=== PATIENT | male | born 1975 | race Caucasian/White ===

== ENCOUNTER 2019-08-27 12:52 | Outpatient (CLI) | payer OTHER, SELFPAY ==
--- NOTE | ~2019-08-27 | XR_ITS ---
EXAMINATION: XR tibia fibula RT 2V DATE: 08/27/2019 13:32 INDICATION: Several days of right-sided fibula pain TECHNIQUE: Anteroposterior and lateral views of the right tibia and fibula were obtained. COMPARISON: None. FINDINGS: Bone alignment is normal. Focal cortical thickening suggesting nonaggressive periosteal reaction surr ounding a small lucency along the lateral cortex of the fibular diaphysis located 18 cm proximal to t he caudal tip of the lateral malleolus. No evident endosteal scalloping. Tricompartmental osteoarthritis at the right knee with prominent marginal osteophytes in all 3 compar tments. There is only mild joint space narrowing the medial and patellofemoral compartments however s everity of joint space narrowing can be underestimated on nonweightbearing imaging in the degree of o steophytosis suggests at least moderate osteoarthritis. Joint space at the right ankle and visualized hindfoot appear relatively preserved. Prominent hypertrophic changes at the dorsal aspect of the hea d of the talus and navicula with large intervening heterotopic ossicle posterior to the joint space w hich likely represent sequela of old capsular injury. Moderate-sized plantar calcaneal spur and small Achilles calcaneal spur. IMPRESSION: 1. Prominent cortical thickening surrounding a small lytic lesion at the lateral cortex of the mid to distal right fibular diaphysis. The most likely etiologies include stress fracture, osteoid osteoma or Segun's abscess in the appropriate clinical setting. Correlate clinically for either pattern of a ctivity conducive to stress fracture, typical pain of osteoid osteoma characterized by nighttime pain relieved with salicylates or signs/symptoms of infection in the setting of Segun's abscess. Patient 's age is at the upper limits of normal for osteoid osteoma and the lucency appears more linear on th e lateral projection and would favor stress fracture. 2. Right knee tricompartmental osteoarthritis of at least mild severity, potentially more severe give n the prominent osteophytosis. Reviewed, dictated and finalized at location A. S OFFICE ADMINISTRATOR IMPRESSION: 1. Prominent cortical thickening surrounding a small lytic lesion at the latera l cortex of the mid to distal right fibular diaphysis. The most likely etiologi es include stress fracture, osteoid osteoma or Segun's abscess in the appropri ate clinical setting. Correlate clinically for either pattern of activity condu cive to stress fracture, typical pain of osteoid osteoma characterized by night time pain relieved with salicylates or signs/symptoms of infection in the setti ng of Segun's abscess. Patient's age is at the upper limits of normal for oste oid osteoma and the lucency appears more linear on the lateral projection and w ould favor stress fracture. 2. Right knee tricompartmental osteoarthritis of at least mild severity, potent ially more severe given the prominent osteophytosis.
== END 2019-08-27 12:53 | disposition home or self-care (01) ==
DX: M89.8X6 Other specified disorders of bone, lower leg (principal); M17.11 Unilateral primary osteoarthritis, right knee
CPT/HCPCS: 73590

== ENCOUNTER 2023-04-09 14:26 | Outpatient (CLI) | payer BC, SELFPAY ==
[2023-04-09 15:36] LABS: Hematocrit 54.9 % (42.0-52.0); Hemoglobin 17.8 g/dL (14.0-18.0); Mean Corpuscular HGB Conc 32.4 g/dl (32-36); Mean Corpuscular Hemoglobin 30.4 pg (26-34); Mean Corpuscular Volume 93.7 fl (80-100); Mean Platelet Volume 9.3 fl (7.4-10.4); Platelet Count Result 311 k/mm3 (150-375); Red Blood Count 5.86 M/mm3 (4.6-6.20); Red Cell Distribution Width 16.3 % (11.5-14.5); White Blood Count 6.6 K/mm3 (4.5-10.0)
== END 2023-04-09 14:27 | disposition home or self-care (01) ==
LOC: ANHLAB 14:27
PROVIDERS: PCP Nurse Practitioner Family; Visit Provider Family Medicine
DX: R79.89 Other specified abnormal findings of blood chemistry (principal)
CPT/HCPCS: 36415; 85027

== ENCOUNTER 2023-07-24 15:23 | Outpatient (RCR) | payer BC, SELFPAY ==
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
--- NOTE | 2023-10-12 11:38 | PTOPDC ---
Assessment and note entered by Dahiana Betts, PT, DPT Evaluation Information Assessment Status Discharge - Pt Not Present Diagnosis L hip and knee pain Onset chronic Subjective Information Called and spoke with pt, he states he is scheduled for a [facility]. Assessment PT Clinical Summary Pt will be discharged at this time. Educated on benefits of therapy after hip replacement d/t prolonged time with limited motion/function.
== END 2023-10-12 13:49 | disposition home or self-care (01) ==
LOC: ANHGOSHPT 15:23
PROVIDERS: PCP Family Medicine; Visit Provider Anesthesiology Pain Medicine
DX: M25.562 Pain in left knee (principal); M25.552 Pain in left hip; G89.21 Chronic pain due to trauma
CPT/HCPCS: 97110; 97161

== ENCOUNTER 2023-09-14 09:33 | Outpatient (CLI) | payer BC, SELFPAY ==
[2023-09-14 10:13] LABS: Hematocrit 49.8 % (42.0-52.0); Hemoglobin 17.7 g/dL (14.0-18.0); Mean Corpuscular HGB Conc 35.5 g/dl (32-36); Mean Corpuscular Hemoglobin 38.4 pg (26-34); Mean Platelet Volume 8.4 fl (7.4-10.4); Platelet Count Result 192 k/mm3 (150-375); Red Blood Count 4.61 M/mm3 (4.6-6.20); Red Cell Distribution Width 14.5 % (11.5-14.5); White Blood Count 7.6 K/mm3 (4.5-10.0)
[2023-09-22 21:44] LABS: Testosterone Free 31.9 pg/mL (35.0-155.0); Testosterone Total 233 ng/dL (250-1100)
== END 2023-09-14 09:34 | disposition home or self-care (01) ==
LOC: ANHLAB 09:35
PROVIDERS: PCP Family Medicine; Visit Provider Family Medicine
DX: R79.89 Other specified abnormal findings of blood chemistry (principal); G89.4 Chronic pain syndrome; F41.9 Anxiety disorder, unspecified; E66.9 Obesity, unspecified; I10 Essential (primary) hypertension
CPT/HCPCS: 36415; 84402; 84403; 85027

== ENCOUNTER 2023-10-01 16:10 | Outpatient (CLI) | payer BC, SELFPAY ==
--- NOTE | ~2023-10-01 | US_ITS ---
EXAMINATION: US venous doppler LE RT DATE: 10/01/2023 16:09 INDICATION: Right lower limb pain. TECHNIQUE: Grayscale ultrasound images without and with compression and Doppler ultrasound images of the right lower extremity veins were obtained. COMPARISON: None. FINDINGS: There is thrombus in right common femoral vein, profunda femoral vein, femoral vein, popliteal vein, and posterior tibial and peroneal veins. Greater saphenous vein outflow is patent. IMPRESSION: 1. Extensive deep vein thrombosis in right lower limb. Reviewed, dictated and finalized at location A.
--- NOTE | ~2023-10-01 | XR_ITS ---
AP and lateral views of the right tibia/fibula Clinical History: Pain Findings: No acute fracture or dislocation is seen. Old, healed fracture of the fibular shaft noted. Osseous alignment is anatomic. There is moderate to severe tricompartmental degenerative change at th e knee. Suspected intra-articular loose bodies at the knee. There is prominent spurring and degenerat reji change at the dorsal aspect of the talonavicular articulation. Soft tissues are unremarkable. Impression: Moderate to severe tricompartmental degenerative change of the knee with probable intra-articular loo se bodies. Old, healed fracture deformity of the mid fibular shaft. Additional prominent degenerative change and spurring at the dorsal aspect of the talonavicular artic ular relation. Reviewed, dictated and finalized at location M. Impression: Moderate to severe tricompartmental degenerative change of the knee with probab le intra-articular loose bodies. Old, healed fracture deformity of the mid fibular shaft. Additional prominent degenerative change and spurring at the dorsal aspect of t he talonavicular articular relation.
[2023-10-01 16:56] LABS: D Dimer 6.17 ug/mL (<0.48)
== END 2023-10-01 16:11 | disposition home or self-care (01) ==
PROVIDERS: PCP Family Medicine; Visit Provider Nurse Practitioner Family
DX: M79.604 Pain in right leg (principal); M79.89 Other specified soft tissue disorders; Z86.718 Personal history of other venous thrombosis and embolism; M79.671 Pain in right foot; Z87.312 Personal history of (healed) stress fracture; M17.11 Unilateral primary osteoarthritis, right knee; I82.4Z1 Acute embolism and thrombosis of unspecified deep veins of right distal lower extremity
CPT/HCPCS: 36415; 73590; 85380; 93971

== ENCOUNTER 2023-10-01 17:10 | Emergency (ER) | payer BC, SELFPAY ==
[2023-10-01] VITALS (8 sets, daily range): BP systolic 128–144; BP diastolic 64–97; PULSE 101–116; RESP 16–20; TEMP 37.2; O2SAT 97–100
--- NOTE | ~2023-10-01 | CT_ITS ---
EXAMINATION: CTA chest PE protocol DATE: 10/01/2023 18:45 INDICATION: extensive RLE dvt, tachycardia, hx pe TECHNIQUE: Computed tomography angiography (CTA) of the chest was performed with 100 mL Omnipaque-350 intravenous contrast timed to evaluate the pulmonary arteries. Coronal maximum intensity projection 3D-reconstructions were created by the technologist. The dose-length product (DLP) was 858.14 mGy-cm. Automated exposure control and iterative reconstruction technique were employed. COMPARISON: 06/13/2012, report only. FINDINGS: Lung parenchyma and airways: Focal groundglass opacity in the superior and peripheral right lower lob e. Minimal right lower lobe dependent scar/atelectasis. Pleura: Unremarkable. Thoracic inlet, axillae and chest wall: Unremarkable. Thoracic aorta: No significant dilation. No dissection. Minimal atherosclerotic calcification. Mediastinum: Normal. Heart and pericardium: Normal. Coronary artery calcifications: Mild. Upper abdomen: No significant finding. Bones: No acute osseous finding. Pulmonary arteries: Study quality: Limited by suboptimal and late contrast bolus, beam hardening, and motion artifact. Nonocclusive emboli noted in segmental right upper lobe branches, interlobar artery , segmental right middle and lower lobe branches. IMPRESSION: Multiple acute nonocclusive interlobar segmental and subsegmental right lung pulmonary emboli. Modera te clot burden. RV/LV ratio 1.1 which may indicate right heart strain. 14 mm right upper lobe groundglass nodule, recommend follow-up CT at 6-12 months to confirm persisten ce. Reviewed, dictated and finalized at location K. IMPRESSION: Multiple acute nonocclusive interlobar segmental and subsegmental right lung pu lmonary emboli. Moderate clot burden. RV/LV ratio 1.1 which may indicate right heart strain. 14 mm right upper lobe groundglass nodule, recommend follow-up CT at 6-12 month s to confirm persistence.
[2023-10-01 17:46] LABS: Basophils Percent Auto 0.4 % (0.2-1.2); Eosinophils Percent Auto 0.2 % (0-4.4); Hematocrit 50.5 % (42.0-52.0); Hemoglobin 18.5 g/dL (14.0-18.0); Immature Granulocyte Absolute 0.05 K/mm3 (0.00-0.031); Immature Granulocyte Percent A 0.5 % (0-0.5); Lymphocytes Absolute Auto 1.52 K/mm3 (0.9-3.2); Lymphocytes Percent Auto 13.7 % (18.3-44.2); Mean Corpuscular HGB Conc 36.6 g/dl (32-36); Mean Corpuscular Hemoglobin 38.7 pg (26-34); Mean Corpuscular Volume 105.6 fl (80-100); Mean Platelet Volume 8.2 fl (7.4-10.4); Monocytes Absolute Auto 1.1 K/mm3 (0.1-0.6); Monocytes Percent Auto 9.6 % (2.6-8.5); Neutrophils Absolute Auto 8.4 K/mm3 (1.3-6.7); Neutrophils Percent Auto 75.6 % (45.5-73.1); Platelet Count Result 215 k/mm3 (150-375); Red Blood Count 4.78 M/mm3 (4.6-6.20); Red Cell Distribution Width 13.4 % (11.5-14.5); White Blood Count 11.1 K/mm3 (4.5-10.0)
[2023-10-01 17:58] LABS: INR 1.1; Partial Thromboplastin Time 28.5 Seconds (22.3-36.8); Prothrombin Time 14.9 Seconds (11.1-14.7)
[2023-10-01 18:01] LABS: Alanine Aminotransferase 29 U/L (6-50); Albumin Level 4.5 g/dL (3.5-5.1); Alkaline Phosphatase 94 U/L (38-126); Anion Gap 10 mmol/L (4-12); Aspartate Amino Transferase 37 U/L (17-59); Bilirubin,Total 1.5 mg/dL (0.2-1.3); Blood Urea Nitrogen 9 mg/dL (9-20); Calcium 9.8 mg/dL (8.4-10.2); Carbon Dioxide 26 mmol/L (22-30); Chloride 100 mmol/L (98-107); Estimated CRCL calculation 137 ml/min; Estimated Glomerular Filt Rate > 60; Glucose 97 mg/dL (65-110); Potassium 4.3 mmol/L (3.4-5.0); Sodium 136 mmol/L (137-145)
[2023-10-01 18:12] LABS: Macrocytosis 1+ (NORMAL); Platelet Estimate Adequate (Adequate); Schistocytes None Seen
--- NOTE | 2023-10-01 18:21 | ECG_ITS ---
Measurements Intervals [place] Rate: 105 P: 55 MS: 195 QRS: -42 QRSD: 104 T: 44 QT: 342 AVG RR 569 QTc: 404 QTcB 454 QTcF 413 Interpretive Statements SINUS TACHYCARDIA MARKED LEFT AXIS DEVIATION [QRS AXIS < -30] ABNORMAL ECG SEE SCANNED COPY FOR SIGNATURE MTDD
--- NOTE | 2023-10-01 18:30 | ED.EXTPRO ---
HPI - Extremity Problem General Chief complaint: Extremity Problem,Nontraumatic Stated complaint: R LLE DVT Time Seen by Provider: 10/01/23 17:25 Source: patient Mode of arrival: ambulatory Limitations: no limitations History of Present Illness HPI Narrative: Patient is a 48-year-old male who presents the ED with positive DVT ultrasound. Patient reports he developed pain and swelling in his right lower leg yesterday. Pain initially began in the arch of his foot. He felt this may be related to his bicycle riding. Now complains of pain into his lateral calf and ankle region. Contacted his primary care doctor today and had an outpatient venous Doppler ultrasound of his right lower extremity which showed extensive DVT. He was then referred to ED for further evaluation. Patient does report history of previous DVT/PE several years ago, was on anticoagulation for approximately 1 year before being taken off. Is not currently on any blood thinners. Denies chest pain, shortness breath, dizziness, lightheadedness, palpitations. Related Data Allergies Allergy/AdvReac Type Severity Reaction Status Date / Time vicodine Allergy Nausea Uncoded 10/01/23 14:26 valium AdvReac Unknown Nausea and Uncoded 10/01/23 14:26 Vomiting Review of Systems Review of Systems: CONSTITUTIONAL: Denies fever, chills, or sweats. CARDIOVASCULAR: See HPI. RESPIRATORY: Denies dyspnea. GASTROINTESTINAL: Denies abdominal pain, nausea, vomiting. MUSCULOSKELETAL: See HPI. NEUROLOGIC: Denies headache, dizziness, numbness, or weakness. All systems reviewed & are unremarkable except as noted in HPI and below PMFSH Past Medical History Medical History DVT (deep venous thrombosis) High blood pressure Left ACL tear Leg pain Painful joint Patellar fracture Pulmonary embolism Right ACL tear Rotator cuff tear, right Snoring Swollen joint Tear of right acetabular labrum Family History Family History Father Alcoholism Mother Hypertension Sibling Diabetes mellitus Grandparent Alcoholism Social History Social History Smoking status: Never smoker Alcohol intake: current Drinks per week: 25 Substance use: current Substance use type: marijuana Lack of Transportation: No Lack of Food: Never True Current Housing: I Have Housing Concerned About Future Housing: No Difficulty Paying Gas/Electric Bills: No Difficulty Paying for Meds: No Currently Unemployed: No Education: Bachelor's Degree Difficulty w/ Childcare or Family Care: No Living arrangements: with family Gender identity (if verbalized by the patient): Male Exam Narrative: GENERAL: Well appearing, obese with BMI of 33.2, non-toxic, in no acute distress. HEAD: Normocephalic, atraumatic. RESPIRATORY: Airway patent, respirations nonlabored. Clear to auscultation bilaterally, no rales, rhonchi, wheezing. CARDIOVASCULAR: Tachycardic with regular rhythm without murmurs, rubs, or gallops. Pedal pulses intact bilaterally. MUSCULOSKELETAL: Moves all extremities. No gross deformities. Moderate nonpitting edema to right lower extremity, particularly around right ankle. Mild tenderness around right lateral calf distally. No swelling appreciated in L leg. Sensation is intact. Capillary refill intact. SKIN: Warm, dry, normal color. NEURO: A&O X3. Speech clear. PSYCHIATRIC: Appropriate mood and affect. Normal interaction. Course Vital Signs Vital signs: Vital Signs Temperature 99 F 10/01/23 17:16 Pulse Rate 101 H 10/01/23 17:16 Respiratory Rate 20 10/01/23 17:16 Blood Pressure 142/97 H 10/01/23 17:16 Pulse Oximetry 100 10/01/23 17:16 Oxygen Delivery Room Air 10/01/23 17:16 Temperature 99 F 10/01/23 17:16 Pulse Rate 107 H 10/01/23 23:58 Respiratory
[2023-10-01 19:11] LABS: NT Pro B Type Natriuretic Pept < 20 pg/mL (19.9-100); Troponin I < 0.012 ng/mL (0.000-0.034)
[2023-10-01] MEDS: HEPARIN SOD/D5W 100 UNITS/ML 25,000 UNITS/250 ML BAG 15 UNITS IV CONT (19:52)
[2023-10-01] MEDS: HEPARIN SODIUM 5,000 UNITS/ML VIAL 7500 UNITS IV PUSH (19:52)
[2023-10-02 01:32] VITALS: BP 136/83; PULSE 97; RESP 20; O2SAT 100
== END 2023-10-02 01:34 | disposition short-term general hospital (02) ==
PROVIDERS: Emergency Provider Physician Assistant; PCP Family Medicine
DX: I26.09 Other pulmonary embolism with acute cor pulmonale (principal); I82.401 Acute embolism and thrombosis of unspecified deep veins of right lower extremity; R00.0 Tachycardia, unspecified; Z86.718 Personal history of other venous thrombosis and embolism; Z86.711 Personal history of pulmonary embolism; I10 Essential (primary) hypertension
CPT/HCPCS: 36415; 71275; 73590; 80053; 83880; 84484; 85025; 85380; 85610; 85730; 93005; 93971; 96365; 96366; 99285; J1644; Q9967

== ENCOUNTER 2023-10-09 12:44 | Emergency (ER) | payer BC, SELFPAY ==
--- NOTE | 2023-10-09 12:55 | ED.EPISTAXIS ---
HPI - Epistaxis General Chief complaint: Epistaxis Stated complaint: nosebleed earlier Time Seen by Provider: 10/09/23 12:48 History of Present Illness HPI Narrative: 48-year-old male history of recently diagnosed DVT with no identifiable cause presents to the emergency room for evaluation of epistaxis that occurred while at work. Patient states he experienced a nosebleed for about 5-10 minutes, and was able to stop the bleeding after 10 minutes of applied direct pressure. Patient denies any injury or trauma with relation to this presentation. Patient states he has been taking Eliquis 5 mg twice daily since his diagnosis Related Data Allergies Allergy/AdvReac Type Severity Reaction Status Date / Time vicodine Allergy Nausea Uncoded 10/01/23 14:26 valium AdvReac Unknown Nausea and Uncoded 10/01/23 14:26 Vomiting Review of Systems Review of Systems: CONSTITUTIONAL: Denies fever, chills, or sweats. EYES: Denies visual changes, redness, or discharge. ENT: Reports epistaxis CARDIOVASCULAR: Denies chest pain, palpitations, or edema. RESPIRATORY: Denies cough or dyspnea. GASTROINTESTINAL: Denies abdominal pain, nausea, vomiting, or diarrhea. GENITOURINARY: Denies dysuria or hematuria. SKIN: Denies rash or itching. MUSCULOSKELETAL: Denies back pain, joint pain, or myalgia. NEUROLOGIC: Denies headache, numbness, dizziness, or weakness. PSYCHIATRIC: Denies anxiety or depression. [facility] Past Medical History Medical History DVT (deep venous thrombosis) High blood pressure Left ACL tear Leg pain Painful joint Patellar fracture Pulmonary embolism Right ACL tear Rotator cuff tear, right Snoring Swollen joint Tear of right acetabular labrum Family History Family History Father Alcoholism Mother Hypertension Sibling Diabetes mellitus Grandparent Alcoholism Social History Social History Smoking status: Never smoker Alcohol intake: current Drinks per week: 25 Substance use: current Substance use type: marijuana Lack of Transportation: No Lack of Food: Never True Current Housing: I Have Housing Concerned About Future Housing: No Difficulty Paying Gas/Electric Bills: No Difficulty Paying for Meds: No Currently Unemployed: No Education: Bachelor's Degree Difficulty w/ Childcare or Family Care: No Living arrangements: with family Gender identity (if verbalized by the patient): Male Exam Narrative: GENERAL: Well-appearing, well-nourished, no physical limitations, and in no acute distress. HEAD: Normocephalic, atraumatic. EYES: Conjunctivae normal, PERRLA and EOMI. ENT: Dried blood in left anterior naris NECK: Supple. No meningeal signs. No adenopathy or masses. No carotid bruits or JVD CHEST: Clear to auscultation. No respiratory distress. No wheezes rales or rhonchi. HEART: Regular rate and rhythm. No murmur heard. Normal peripheral pulses. EXTREMITIES: Normal range of motion. No edema. No clubbing or cyanosis SKIN: Warm, dry, no rash. No noted wounds NEURO: No focal deficits. Alert and oriented x3. MAEW. CN's II-XI intact bilaterally, normal gait PSYCH: Cooperative. Normal mood and affect. Discharge Plan Discharge Clinical Impression: Acute anterior epistaxis Patient Disposition: Home, Self-Care Condition: Stable Instructions: Antibiotic Form, Nosebleed (ED) Prescriptions: No Action triamcinolone acetonide 40 mg/mL suspension 40 mg intra-articular ONCE Qty: 1 0RF bupivacaine (PF) 0.5 % (5 mg/mL) solution 5 ml Infiltration ONCE Qty: 10 0RF ondansetron 8 mg tablet,disintegrating 8 mg PO Q6H PRN (Reason: nausea and vomiting) Qty: 30 0RF hydrocodone-acetaminophen 5-325 mg tablet 1 tablet PO Q6H PRN (Reason: pain) Qty: 56 0RF (DME) [employer] Touch [employer] Syrg-Ndl 3
[2023-10-09 13:00] VITALS: BP 150/90; PULSE 98; RESP 18; TEMP 36.7; O2SAT 100
[2023-10-09 13:36] LABS: Basophils Percent Auto 0.6 % (0.2-1.2); Eosinophils Absolute Auto 0.4 K/mm3 (0-0.3); Eosinophils Percent Auto 5.4 % (0-4.4); Hematocrit 49.7 % (42.0-52.0); Hemoglobin 17.9 g/dL (14.0-18.0); Immature Granulocyte Absolute 0.03 K/mm3 (0.00-0.031); Immature Granulocyte Percent A 0.4 % (0-0.5); Lymphocytes Absolute Auto 1.77 K/mm3 (0.9-3.2); Lymphocytes Percent Auto 24.7 % (18.3-44.2); Mean Corpuscular Hemoglobin 38.7 pg (26-34); Mean Corpuscular Volume 107.6 fl (80-100); Mean Platelet Volume 8.2 fl (7.4-10.4); Monocytes Absolute Auto 0.7 K/mm3 (0.1-0.6); Monocytes Percent Auto 9.8 % (2.6-8.5); Neutrophils Absolute Auto 4.2 K/mm3 (1.3-6.7); Neutrophils Percent Auto 59.1 % (45.5-73.1); Platelet Count Result 228 k/mm3 (150-375); Red Blood Count 4.62 M/mm3 (4.6-6.20); Red Cell Distribution Width 13.5 % (11.5-14.5); White Blood Count 7.2 K/mm3 (4.5-10.0)
[2023-10-09 13:47] LABS: INR 1.3; Prothrombin Time 16.9 Seconds (11.1-14.7)
[2023-10-09 13:52] LABS: Platelet Estimate Adequate (Adequate); Poikilocytosis 1+; Schistocytes None Seen
== END 2023-10-09 14:10 | disposition home or self-care (01) ==
PROVIDERS: Emergency Provider Nurse Practitioner Family; PCP Family Medicine
DX: R04.0 Epistaxis (principal); Z86.718 Personal history of other venous thrombosis and embolism; I10 Essential (primary) hypertension; Z86.711 Personal history of pulmonary embolism; Z79.01 Long term (current) use of anticoagulants
CPT/HCPCS: 36415; 85025; 85610; 85730; 99283

== ENCOUNTER 2024-01-09 14:06 | Outpatient (CLI) | payer BC, SELFPAY ==
--- NOTE | ~2024-01-09 | US_ITS ---
EXAMINATION:US venous doppler LE BI INDICATION:DVT. Patient on blood thinners. TECHNIQUE: Multiple grayscale, color flow and Doppler images of the right and left lower extremity de ep venous systems were obtained and reviewed. COMPARISON:Ultrasound dated 10/01/2023 FINDINGS: The left common femoral, superficial femoral and popliteal veins demonstrate normal respira tory variation, augmentation and compressibility. Color flow is also seen within the posterior tibia l, peroneal, greater saphenous and profunda veins. There is chronic deep venous thrombosis of the lef t profunda femoral, femoral, popliteal and gastrocnemius veins. IMPRESSION: 1: Extensive chronic deep venous thrombosis of the right lower extremity. Reviewed, dictated and finalized at location B.
== END 2024-01-09 14:07 | disposition home or self-care (01) ==
PROVIDERS: PCP Family Medicine; Visit Provider Internal Medicine Hematology & Oncology
DX: I82.401 Acute embolism and thrombosis of unspecified deep veins of right lower extremity (principal)
CPT/HCPCS: 93970

== ENCOUNTER 2024-01-14 11:46 | Outpatient (CLI) | payer BC, SELFPAY ==
--- NOTE | ~2024-01-14 | XR_ITS ---
EXAM: XR soft tissue neck DATE: 01/14/2024 12:09 HISTORY: No injury feeling something in throat on right side x 3 silvano . COMPARISON: [facility]PA 10/01/2023 and 06/21/2012. FINDINGS: Normal hilar bone. Somewhat rounded appearance of calcification to the thyroid cartilage. Normal airway. While degenerative change in the cervical spine. IMPRESSION: Somewhat rounded appearance of the calcified thyroid cartilage, mass is not excluded. Con veterinary inspector CT of the neck with contrast for further evaluation. Reviewed, dictated and finalized at location K. IMPRESSION: Somewhat rounded appearance of the calcified thyroid cartilage, mas s is not excluded. Consider CT of the neck with contrast for further evaluation .
== END 2024-01-14 11:47 ==
PROVIDERS: PCP Family Medicine; Visit Provider Nurse Practitioner Family
DX: R09.A2 Foreign body sensation, throat (principal)
CPT/HCPCS: 70360

== ENCOUNTER 2024-01-21 12:08 | Outpatient (CLI) | payer BC, SELFPAY ==
[2024-01-21 12:41] LABS: Hematocrit 52.7 % (42.0-52.0); Hemoglobin 18.9 g/dL (14.0-18.0); Mean Corpuscular HGB Conc 35.9 g/dl (32-36); Mean Corpuscular Hemoglobin 38.6 pg (26-34); Mean Corpuscular Volume 107.6 fl (80-100); Mean Platelet Volume 8.6 fl (7.4-10.4); Platelet Count Result 208 k/mm3 (150-375); Red Cell Distribution Width 13.5 % (11.5-14.5); White Blood Count 8.1 K/mm3 (4.5-10.0)
[2024-01-21 13:19] LABS: Prostate Specific Antigen 0.4 ng/mL (< OR = 4.0)
[2024-01-24 15:43] LABS: Testosterone Free 405.4 pg/mL (35.0-155.0); Testosterone Total 1516 ng/dL (250-1100)
== END 2024-01-21 12:09 | disposition home or self-care (01) ==
LOC: ANHLAB 12:09
PROVIDERS: PCP Family Medicine; Visit Provider Family Medicine
DX: Z51.81 Encounter for therapeutic drug level monitoring (principal); Z79.890 Hormone replacement therapy
CPT/HCPCS: 36415; 84153; 84402; 84403; 85027; G0103

== ENCOUNTER 2024-01-26 11:08 | Outpatient (CLI) | payer BC, SELFPAY ==
--- NOTE | ~2024-01-26 | CT_ITS ---
EXAMINATION: CT soft tissue neck w con DATE: 01/26/2024 11:55 INDICATION: Abnormal findings on diagnostic imaging. Neck mass. TECHNIQUE: Computed tomography (CT) of the neck was performed with 75 mL Omnipaque-350 intravenous co ntrast. Automated exposure control and iterative reconstruction technique were employed. The dose-eleonora gth product was 686.71 mGy-cm. COMPARISON: Neck radiographs 01/14/2024 FINDINGS: There are no pathologically enlarged lymph nodes. The cervical carotid arteries are normal. There is no abnormal mass. There is an old blowout fracture of medial wall of left orbit. There is m ild mucosal thickening in the paranasal sinuses. The mastoid air cells are normal. There is mild cerv ical spondylosis. IMPRESSION: 1. No abnormal neck mass or lymphadenopathy. Reviewed, dictated and finalized at location A.
[2024-01-26 11:51] LABS: Estimated Glomerular Filt Rate > 60
== END 2024-01-26 11:09 | disposition home or self-care (01) ==
LOC: ANHIMG 11:08
PROVIDERS: PCP Family Medicine; Visit Provider Nurse Practitioner Family
DX: R93.89 Abnormal findings on diagnostic imaging of other specified body structures (principal)
CPT/HCPCS: 70491; Q9967

== ENCOUNTER 2024-04-08 15:58 | Outpatient (CLI) | payer BC, SELFPAY ==
--- NOTE | ~2024-04-08 | US_ITS ---
EXAMINATION: US venous doppler LE RT DATE: 04/08/2024 16:54 INDICATION: Right lower limb chronic deep vein thrombosis. TECHNIQUE: Grayscale ultrasound images without and with compression and Doppler ultrasound images of the right lower extremity veins were obtained. COMPARISON: Ultrasound 01/09/2024 FINDINGS: The visualized portions of right common femoral vein, profunda (deep) femoral vein, and greater saphe nous vein outflow are patent. There is thrombus in the right femoral, popliteal, posterior tibial, pe roneal, and gastrocnemius veins. IMPRESSION: 1. Deep vein thrombosis involving the right femoral, popliteal, posterior tibial, peroneal, and miguelina rocnemius veins with worsened distribution from 01/09/2024. Reviewed, dictated and finalized at location A. IMPRESSION: 1. Deep vein thrombosis involving the right femoral, popliteal, posterior tibi al, peroneal, and gastrocnemius veins with worsened distribution from 01/09/2024 .
== END 2024-04-08 15:59 | disposition home or self-care (01) ==
PROVIDERS: PCP Family Medicine; Visit Provider Nurse Practitioner Family
DX: I82.531 Chronic embolism and thrombosis of right popliteal vein (principal); I82.511 Chronic embolism and thrombosis of right femoral vein; I82.541 Chronic embolism and thrombosis of right tibial vein; I82.551 Chronic embolism and thrombosis of right peroneal vein; I82.561 Chronic embolism and thrombosis of right calf muscular vein
CPT/HCPCS: 93971

== ENCOUNTER 2024-06-02 09:31 | Outpatient (CLI) | payer BC, SELFPAY ==
--- NOTE | ~2024-06-02 | US_ITS ---
RIGHT LOWER EXTREMITY VENOUS ULTRASOUND Ordering provider: Gibran Wilson MD History: . Chronic embolism and thrombosis of right popliteal vein . Comparison: April 08, 2024 FINDINGS: --COMMON FEMORAL: Patent and free of thrombus. Normal compressibility, phasic flow and augmentation. --PROXIMAL SUPERFICIAL FEMORAL: Chronic DVT --DISTAL SUPERFICIAL FEMORAL: Chronic DVT. --POPLITEAL: Chronic DVT. --POSTERIOR TIBIAL: Patent and free of thrombus. Normal compressibility, phasic flow and augmentation . DVT is also seen in the gastrocnemius and peroneal veins. IMPRESSION: Chronic DVT unchanged from previous examination. Reviewed, dictated and finalized at location A. TAL STRATEGY DIRECTOR
== END 2024-06-02 09:32 | disposition home or self-care (01) ==
PROVIDERS: PCP Family Medicine; Visit Provider Internal Medicine Hematology & Oncology
DX: I82.531 Chronic embolism and thrombosis of right popliteal vein (principal)
CPT/HCPCS: 93971

== ENCOUNTER 2024-09-30 11:43 | Outpatient (CLI) | payer BC, SELFPAY ==
--- NOTE | 2024-09-30 11:52 | ECG_ITS ---
Test Date: 2024-09-30 12:03:55 Measurements Intervals [place] Rate: 90 P: 63 NC: 175 QRS: -33 QRSD: 106 T: 55 QT: 366 QTc: 449 Interpretive Statements SINUS RHYTHM LEFT AXIS DEVIATION CONSIDER INFERIOR INFARCT, AGE INDETERMINATE ABNORMAL ECG No previous ECG available for comparison Electronically Signed On 09-30-2024 12:10:10 CDT by Flo Pollock D.O.
--- OUTSIDE RECORDS SUMMARY | 2024-09-30 13:13 | XMS_ITS | Clinical Summary ---
Author Organization [facility] Address [address] [place] [address] Phone Care Team Providers Care Cafe Attendant Name Role Phone Unavailable Primary Care Provider Unavailabl e Allergies Active Allergy Reactions Criticality Noted Date Comments Hydrocodone-Acetaminophen Hallucination, Nausea and Vomiting Medium 08/09/2016 Meloxicam Unknown 12/01/2016 Medications lisinopriL (PRINIVIL) 20 mg tablet Take 20 mg by mouth daily. 4 Active ondansetron (ZOFRAN ODT) 8 mg Tablet, Rapid Dissolve Take 8 mg by mouth every 6 hours as needed. 4 Active hydroCHLOROthi azide 25 mg tablet Take 25 mg by mouth daily. 4 Active testosterone cypionate (DEPO-TESTOSTE JAIRO) 100 mg/mL Oil Inject 250 mg by intramuscular injection every 7 days. Active Wegovy 1.7 mg/0.75 mL Pen Injector Inject 1.7 mg by subcutaneous injection every 7 days. 4 Active apixaban (ELIQUIS) 5 mg tablet Take 1 Tablet (5 mg) by mouth 2 times daily. 60 Tablet 4 5 Active Active Problems Problem Noted Date Diagnosed Date Hypogonadism male 10/03/2023 Right leg DVT 10/02/2023 Acute pulmonary embolism without acute cor pulmo nale 10/02/2023 Benign essential HTN 10/02/2023 Encounters Date Type Department Care Team Description 09/23/2024 External Device Data STL ABSTRACTION Provider, Abstract 09/02/2024 External Device Data STL ABSTRACTION Provider, Abstract 09/02/2024 External Device Data STL ABSTRACTION Provider, Abstract 07/16/2024 Telephone [facility] Oncology [facility] H[facility]ology - Tab [address] [place] [address] Gibran Wilson MD Medication Review 07/07/2024 3:45 PM CHIEF MECHANICAL OFFICER Office Visit [facility] and [facility] [address] [place] [address] Gibran Wilson MD Chronic deep 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 (CMS/HCC) (Primary Dx) 07/02/2024 Telephone [facility] Hematology [facility] [address] [place] [address] Gibran Wilson MD Results from Last 3 Months Family History Medical History Relation Name Comments No Known Problems Mother No Known Problems Sister 1 Diabetes Sister 2 Relation Name Status Comments Father Alive Mother Alive Sister 1 Alive Sister 2 Alive Social History Tobacco Use Types Packs/Day Years Used Date Smoking Tobacco: Never Smokeless Tobacco: Never Tobacco Cessation:Counseling Given: Not Answered Alcohol Use Standard Drinks/Week Comments Yes 4 (1 standard drink = 0.6 oz pur e alcohol) Everyday Feeling Safe Answer Date Recorded Are you in a relationship wi th someone who hurts you emotionally and/or physically? No 10/02/2023 Food Insecurity Answer Date Recorded Social/Environmental Concerns No concerns Transportation Needs Answer Date Record ed Social/Environmental Concerns No concerns Housing Stability Answer Date Recorded Social/Environmental Concerns No concerns Utility Needs Answer Date Recorded Social/Environmental Concerns No concerns Sex and Gender Information Value Date Recorded Sex Assigned at Not on file Legal Sex Male 11:32 PM CDT Gender Identity Not on file Sexual Orientation Not on file Last Filed Vital Signs Vital Sign Reading Time Taken Comments Blood Pressure 137/86 07/07/2024 3:33 PM CHIEF MECHANICAL OFFICER Pulse 94 07/07/2024 3:33 PM CHIEF MECHANICAL OFFICER Temperature 36.6 C (97.9 F) 07/07/2024 3:33 PM CHIEF MECHANICAL OFFICER Respiratory Rate 16 07/07/2024 3:33 PM CHIEF MECHANICAL OFFICER Oxygen Saturation 97% 07/07/2024 3:33 PM CHIEF MECHANICAL OFFICER Inhaled Oxygen Concentration - - Weight 120.1 kg (264 lb 12.8 oz) 07/07/2024 3:33 PM CHIEF MECHANICAL OFFICER Height 188 cm (6' 2 ) 10/31/2023 2:24 PM CDT Body Mass Index 34 10/31/2023 2:24 PM CDT Plan of Treatment Upcoming Encounters Date Type Department Care Team (Late st Contact Info) Description 11/04/2024 3:45 PM CDT Office Visit [facility] Oncology and Hematology - Tab [address] [facility] [address] [place] [address] Gibran Wilson MD [address] [facility] [address] [place] [address] Health Maintenance Due Date Last Done Comments Pre-Diabetes and Diabetes Screening 1977 DTAP/TDAP/TD VACCINES (1 - Tdap) 1996 HEPATITIS B VACCINES (1 of 3 - 19+ 3-dose series) 1996 COLORECTAL SCREENING 2022 Colorectal Cancer Screening 2022 FIT-DNA Q 3 years 2022 FIT/FOBT Q 1 year 2022 Flex Sig/CT Colonography Q 5 years 2022 INFLUENZA VACCINE (#1) 2024 HPV VACCINES Aged Out No longer eligi ble based on patient's age to complete this topic Insurance [employer]ST[place]ANN[place] [id number] [address] PREFERRED [facility] BLUE PREFERRED Advance Directives For more information, please contact: [phone] * Full Code (Latest Code Status on File) Date Activated Date Inactivated Comments 10/02/2023 4:24 AM 10/03/2023 4:05 PM
--- OUTSIDE RECORDS SUMMARY | 2024-09-30 13:13 | XMS_ITS | Clinical Summary ---
Author Organization [facility] Address [address] [place] [address] Care Team Providers Care Field Sales Specialist Name Role Phone Jose Mccloud MD Primary Care Provider [phone] Source Comments [facility],non-owned Affiliates and Associated Physician Practices is amultiple site organization consisting of ambulatory clinics and hospital sitesin [place], [place], [place] and [place]. This disclosure is being madepursuant to the Care Everywhere program and may not contain all information available regarding this patient. Last updated 18.[employer] [facility] Allergies Active Allergy Reactions Criticality Noted Date Comments Hydrocodone-Acetaminophen Nausea and/or Vomiting Medium 08/09/2016 Meloxicam Unknown 12/01/2016 Medications * Be aware that medications may not be up to date on this document. Alwaysverify current medications with the patient. Medication Sig Dispensed Refills Start Date End Date Status lisinopril-hydroCHL OROthiazide (PRINZIDE; ZESTORETIC) 20-25 MG tablet Take 1 tablet by mouth 01/24/2019 Active Magnesium Oxide 250 MG Take 1 tablet by mouth Active traMADol (ULTRAM) 50 MG tablet Take 1-2 tablets by mouth every 4 hours as needed 25 tablet 08/20/2019 Active Additional Information Patient not taking.Reported on 04/13/2020 amLODIPine (NORVASC) 2.5 MG tablet 08/06/2019 Active clonazePAM (KLONOPIN) 0.5 MG tablet 07/31/2019 Active Elastic Bandages & Supports (KNEE BRACE) MISC Left knee brace, donjoy, hinge with padding. Replace current brace. 01/24/2019 Active hydroCHLOROthiazide (HYDRODIURIL) 25 MG tablet 02/07/2019 Active naproxen (NAPROSYN) 500 MG tablet Take 1 tablet by mouth every 12 hours 12/01/2016 Active [place]-3 Fatty Acids (FISH OIL) 1000 MG capsule Take 1,000 mg by mouth 2 times daily Active phentermine (IONAMINE) 15 MG capsule Take 15 mg by mouth once daily 11/20/2018 Active rizatriptan (MAXALT) 10 MG tablet Take 10 mg by mouth every 24 hours as needed 11/05/2018 Active traZODone (DESYREL) 50 MG tablet 07/24/2019 Active naltrexone-buPROPio n ER (CONTRAVE) 8-90 MG tablet Take 1 tablet by mouth 2 times daily 12/22/2019 Active busPIRone (BUSPAR) 7.5 MG tablet Take by mouth once daily 03/25/2020 Active naltrexone-buPROPio n ER (CONTRAVE) 8-90 MG tablet Take by mouth 2 times daily 02/25/2020 Active ergocalciferol (DRISDOL) 1.25 MG (75383 UT) capsule Take 50,000 Units by mouth every 7 days Active Probiotic Product (ACIDOPHILUS/GOAT MILK) CAPS Take 4 capsules by mouth once daily Active Active Problems Problem Noted Date Diagnosed Date Insomnia 10/16/2019 Body, loose, knee, left 09/01/2019 Degenerative tear of medial meniscus of left kne e 09/01/2019 Effusion, left knee 09/01/2019 Primary osteoarthritis of left knee 09/01/2019 History of reconstruction of anterior cruciate ligament tear 09/01/2019 Iliotibial band syndrome affecting left lower le g 09/01/2019 Osteoarthrosis involving lower leg 09/01/2019 S/P left knee arthroscopy 09/01/2019 Other chronic pain 09/01/2019 Traumatic complete tear of right rotator cuff Chronic right shoulder pain 06/23/2019 Other chronic pain 06/23/2019 Right shoulder pain 05/08/2019 Osteoarthritis of both hips 02/03/2019 Essential hypertension 01/26/2019 Arthritis of left hip 12/18/2018 Health maintenance examination 11/06/2018 History of sebaceous cyst 11/06/2018 Left hip pain 11/06/2018 Left knee pain 11/06/2018 Migraine 11/06/2018 Morbid obesity 11/06/2018 Skin change 11/06/2018 Body mass index (BMI) 40.0-44.9, adult 8 Body mass index (bmi) 38.0-38.9, adult 7 Social History Tobacco Use Types Packs/Day Years Used Date Smoking Tobacco: Never Smokeless Tobacco: Never Comments:States he is barrerain manjit Payne at present for his paincontrol.- TS Alcohol Use Standard Drinks/Week Comments Yes 0 (1 standard drink = 0.6 oz pur e alcohol) Sex and Gender Information Value Date Recorded Sex Assigned at Not on file Gender Identity Not on file Sexual Orientation Not on file Last Filed Vital Signs Vital Sign Reading Time Taken Comments Blood Pressure 175/102 10/14/2020 2:03 PM CDT Pulse 89 10/14/2020 2:03 PM CDT Temperature 36.8 C (98.3 F) 10/14/2020 2:03 PM CDT Respiratory Rate 20 10/14/2020 2:03 PM CDT Oxygen Saturation 96% 10/14/2020 2:03 PM CDT Inhaled Oxygen Concentration - - Weight 138.6 kg (305 lb 8 oz) 10/14/2020 2:03 PM CDT Height 188 cm (6' 2 ) 04/13/2020 1:21 PM CDT Body Mass Index 39.22 04/13/2020 1:21 PM CDT Plan of Treatment Health Maintenance Due Date Last Done Comments COLOGUARD (AGES 45-75) - COL ON CA SCREENING 1977 COLON MONITORING 1977 COLONOSCOPY - COLON CA SCREENING 1977 CT COLONOGRAPHY - COLON CA SCREENING 1977 Colorectal Cancer Screening 1977 FIT - COLON CA SCREENING 1977 FLEX SIG - COLON CA SCREENING 1977 HIV SCREENING 1992 HEPATITIS C SCREENING 08/27/1995 DTAP/TDAP/TD VACCINES (1 - Tdap) 1996 HEPATITIS B VACCINE (1 of 3 - 19+ 3-dose series) 1996 SCREENING FOR DIABETES 09/16/2020 COVID-19 VACCINE (2023-2 5 season) 2024 INFLUENZA VACCINE (#1) 2024 DEPRESSION SCREENING 06/25/2024 LIPID TESTING 01/12/2025 01/13/2020, 11/05/2018 ZOSTER VACCINE (1 of 2) 09/01/2027 HIB VACCINE Aged Out No longer eligi ble based on patient's age to complete this topic HPV VACCINE Aged Out No longer eligi ble based on patient's age to complete this topic MENINGOCOCCAL (Group B) VACCINE SHARED DECISION-MAKING Aged Out No longer eligible based on patient's age to complete this topic MENINGOCOCCAL GROUPS A/C/Y/W VACCINE Aged Out No longer eligible b ased on patient's age to complete this topic PNEUMOCOCCAL VACCINE Aged Out No long er eligible based on patient's age to complete this topic Medical Devices Implanted Type Area Quantitative Developer Device Identifier Shelf Expiration Date Model / Serial / Lot Healix Advance Br Savage W/Permatape Implanted:Qty: 1 on 08/20/2019 by Brian Johnson MD at [facility] Right: Shoulder 07/25/2020 [id number] / / [id number] Savage Sut Healix Adv 5.5mm Kntls Br Implanted:Qty: 1 on 08/20/2019 by Brian Johnson MD at [facility] Right: Shoulder [employer] 07/25/2021 [id number] / / [id number] Care Teams Field Sales Specialist Relationship Specialty Start Date End Date Jose Mccloud MD [facility] - General 02/03/19
--- OUTSIDE RECORDS SUMMARY | 2024-09-30 13:13 | XMS_ITS | Referral Summary ---
Author Organization [facility] Address [address] [place] [address] Care Team Providers Care Manager Compliance Name Role Phone Jose Mccloud MD Primary Care Provider + [phone] Arpan Iyer MD Unavailable [phone] Encounters Date Type Department Care Team Description 08/05/2024 Telephone [facility] Medical [facility] Orthopedics and Sports Medicine [address] [place] [address] [address] [address] Lavonne Iqbal NP 08/05/2024 Documentation [facility] Orthopedics and Sports Medicine [address] [address] Anna Nelson MA 08/05/2024 7:47 AM COLORING MACHINE OPERATOR - 08/05/2024 11:59 PM COLORING MACHINE OPERATOR Hospital Encounter [facility] Orthopedics and Sports Medicine [address] [place] [address] [address] [place] [address] Discharge Disposition: Discharge to home or self care 08/05/2024 1:00 PM COLORING MACHINE OPERATOR Office Visit [facility] Orthopedics and Sports Medicine [address] [place] [address] [address] [place] [address] Lavonne Iqbal NP 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 (Primary Dx) 07/29/2024 Telephone [facility] Medical [facility] Vascular and Vein Surgery [address] [place] [address] Jael Vázquez 07/17/2024 Orders Only [facility] Orthopedics and Sports Medicine [address] [place] [address] [address] [place] [address] Lavonne Iqbal NP 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 (Primary Dx) 07/16/2024 Telephone [facility] Orthopedics and Sports Medicine [address] [place] [address] [address] [place] [address] Arpan Iyer MD 07/03/2024 1:00 PM COLORING MACHINE OPERATOR Telemedicine [facility] Orthopedics and Sports Medicine [address] [place] [address] [address] [place] [address] Lavonne Iqbal NP 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 (Primary Dx) from Last 3 Months Allergies Active Allergy Reactions Criticality Noted Date Comments Meloxicam Other (See comments) Low 03/31/2024 unknown Diazepam Nausea only Low 03/31/2024 dehydrated Hydrocodone-Acetaminophen Nausea only Low Dehydrated Medications lisinopriL (PRINIVIL,ZESTR IL) 20 mg tablet Take 1 tablet (20 mg total) by mouth daily 07/09/2023 Active hydroCHLOROthia zide (HYDRODIURIL) 25 mg tablet Take 1 tablet (25 mg total) by mouth daily 01/26/2024 Active Wegovy 1.7 mg/0.75 mL auto-injector Inject 1.7 mg under the skin once a week 10/04/2023 Active phentermine 15 mg capsule Take 1 capsule (15 mg total) by mouth every morning 03/20/2024 Active celecoxib (CeleBREX) 200 mg capsuleIndicati ons:Postoperati ve Acute Pain Take 1 capsule (200 mg total) by mouth 2 (two) times a day 84 capsule 06/11/2024 Active apixaban (ELIQUIS) 5 mg tablet Take 1 tablet (5 mg total) by mouth 2 (two) times a day 07/07/2024 Active Active Problems Problem Noted Date Diagnosed Date Primary osteoarthritis of left hip 05/29/2024 Low testosterone in male 03/31/2024 Social History Tobacco Use Types Packs/Day Years Used Date Smoking Tobacco: Never Smokeless Tobacco: Never Tobacco Cessation:Counseling Given: Not Answered AUDIT-C Answer Date Recorded Q1: How often do you have a drink containing alcohol? 4 or more times a week 06/11/2024 Q2: How many drinks containi ng alcohol do you have on a typical day when you are drinking? 1 or 2 Frequency of Binge Drinking Not on file 05/25 Personal Safety Answer Date Recorded Have you ever been in or are you currently in a harmful physical or emotional relationship or is someone making you feel afraid or unsafe? Denies 06/11/2024 Sex and Gender Information Value Date Recorded Sex Assigned at Not on file Legal Sex Male 9:18 AM COLORING MACHINE OPERATOR Gender Identity Not on file Sexual Orientation Not on file Last Filed Vital Signs Vital Sign Reading Time Taken Comments Blood Pressure 132/82 08/05/2024 1:04 PM COLORING MACHINE OPERATOR Pulse 93 08/05/2024 1:04 PM COLORING MACHINE OPERATOR Temperature 36.7 C (98.1 F) 06/11/2024 2:28 PM COLORING MACHINE OPERATOR Respiratory Rate 18 06/11/2024 2:28 PM COLORING MACHINE OPERATOR Oxygen Saturation 100% 06/11/2024 2:28 PM COLORING MACHINE OPERATOR Inhaled Oxygen Concentration - - Weight 118.4 kg (261 lb) 08/05/2024 1:04 PM COLORING MACHINE OPERATOR Height 188 cm (6' 2 ) 08/05/2024 1:04 PM COLORING MACHINE OPERATOR Body Mass Index 33.51 08/05/2024 1:04 PM COLORING MACHINE OPERATOR Plan of Treatment Not on file Medical Devices Implanted Type Area Visual Basic .Net Developer Device Identifier Shelf Expiration Date Model / Serial / Lot [employer] [place] 58mm 36mm Hip Neutral Liner Acetabular Altrx Sterile Latex Free [id number] - [id number] Implanted:Qty: 1 on 06/11/2024 by Arpan Iyer MD at [facility] Left: Hip [employer] [id number] 02/22/2029 [id number] / / [id number] [employer] [place] 58mm Sector Hip Shell Acetabular Gription Sterile Latex Free [id number] - [id number] Implanted:Qty: 1 on 06/11/2024 by Arpan Iyer MD at [facility] Left: Hip [employer] [id number] 03/24/2034 [id number] / / [id number] [employer] [place] 6.5mm 35mm Acetabular Cancellous Screw Bone Sterile 1217-35-500 - [id number] Implanted:Qty: 1 on 06/11/2024 by Arpan Iyer MD at [facility] Left: Hip [employer] [id number] 06/24/2033 1217-35-500 / / [id number] [employer] [place] 6.5mm 35mm Acetabular Cancellous Screw Bone Sterile 1217-35-500 - [id number] Implanted:Qty: 1 on 06/11/2024 by Arpan Iyer MD at [facility] Left: Hip [employer] [id number] 01/22/2034 1217-35-500 / / [id number] Dep[employer] Actis L107 Mm Collar Hip 6 High Offset Stem Femoral [id number] - [id number] Implanted:Qty: 1 on 06/11/2024 by Arpan Iyer MD at [facility] Left: Hip [employer] [id number] 09/22/2033 [id number] / / [id number] Dep[employer] Articul/Alhaji 36mm Cementless Hip +8.5mm 06/07 Taper Head Femoral Latex Free 1365-36-330 - [id number] Implanted:Qty: 1 on 06/11/2024 by Arpan Iyer MD at [facility] Left: Hip [employer] [id number] 01/22/2029 1365-36-330 / / [id number] Procedures Procedure Name Priority Date/Time Associated Diagnosis Comments XR HIP LEFT 2 OR 3 VIEWS Schedule Routine, Read Routine (OP Routine) 08/05/2024 1:00 PM COLORING MACHINE OPERATOR 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 from Last 3 Months Results * XR Hip Left 2 or 3 Views (08/05/2024 1:00 PM COLORING MACHINE OPERATOR) Anatomical Region Laterality Modality Lower Extremities, Hip, Pelvis Left D igital Radiography Narrative 08/05/2024 1:15 PM COLORING MACHINE OPERATOR Radiographs taken of the left hip today reveal a total hip arthroplasty in appropriate position with no interval change from the time of surgery. Lavonne Iqbal PATCH SANDER IMG XR PROCEDURES Final Result from Last 3 Months Insurance Biogenic Reagents ACCESS OOS Biogenic Reagents ACCESS OOS Care Teams Manager Compliance Relationship Specialty Start Date End Date Jose Mccloud MD PCP - General Family Practice 02/12/24 Arpan Iyer MD [address] [place] [address] [place] [address] Surgeon Orthopedic Surgery 06/11/24
--- OUTSIDE RECORDS SUMMARY | 2024-09-30 13:13 | XMS_ITS | Encounter Summary ---
Author Organization [facility] Address [address] [place] [address] Care Team Providers Care Reservoir Engineering Advisor Name Role Phone Jose Mccloud MD Primary Care Provider [phone] Encounter Details Date Type Department Care Team (Late st Contact Info) Description 08/21/2019 Telephone [facility] PHYS ANESTHESIA [address] [place] [address] Shawn Sanchez, DO [address] [place] [address] Social History Tobacco Use Types Packs/Day Years Used Date Smoking Tobacco: Never Smokeless Tobacco: Never Alcohol Use Standard Drinks/Week Comments Yes 0 (1 standard drink = 0.6 oz pur e alcohol) Sex and Gender Information Value Date Recorded Sex Assigned at Not on file Gender Identity Not on file Sexual Orientation Not on file documented as of this encounter Miscellaneous Notes * Telephone Encounter - Shawn Sanchez - 08/21/2019 2:59 PM [facility] Single Shot Peripheral Nerve Block Follow Up Patient called on 08/21/19. The patient is s/p interscalene nerve block. Per the patient, the block did not provide much relief. Motor & sensory are at baseline. Pain is well controlled on oral medication. Pain control per primary team. Thank you for the opportunity to participate in this patient's medical care. Please call with any questions or concerns. Shawn Sanchez DO 08/21/19 T MANAGER documented in this encounter Plan of Treatment Not on file documented as of this encounter Visit Diagnoses Not on filedocumented in this encounter Care Teams Reservoir Engineering Advisor Relationship Specialty Start Date End Date Jose Mccloud MD PCP - General 02/03/19 documented as of this encounter
--- OUTSIDE RECORDS SUMMARY | 2024-09-30 13:13 | XMS_ITS | Clinical Summary ---
Author Organization [facility] Building [facility] Address [address] [place] [address] Care Team Providers Care Automobile Washer Steam Name Role Phone Jose Mccloud MD Primary Care Provider [phone] Arpan Iyer MD Unavailable [phone] Allergies Active Allergy Reactions Criticality Noted Date [...] hip 05/29/2024 Low testosterone in male 03/31/2024 Encounters Date Type Department Care Team Description 08/05/2024 1:00 PM EXPERIENCE DESIGNER Office Visit [facility] Orthopedics and Sports Medicine [address] [place] [address] [address] [place] [address] Lavonne Iqbal NP 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 (Primary Dx) 08/05/2024 7:47 AM EXPERIENCE DESIGNER - 08/05/2024 11:59 PM EXPERIENCE DESIGNER Hospital Encounter [facility] Medicine [address] [place] [address] [address] [place] [address] Discharge Disposition: Discharge to home or self care 08/05/2024 Telephone [facility] Orthopedics [facility] Sports Medicine [address] [place] [address] [address] [address] Lavonne Iqbal NP 08/05/2024 Documentation [facility] Medicine [address] [place] [address] [address] [address] Anna Nelson MA 07/29/2024 Telephone [facility] Vascular and Vein Surgery [address] [facility] [address] [place] [address] Jael Vázquez 07/17/2024 Orders Only [facility] Orthopedics [facility] Sports Medicine [address] [place] [address] [address] [place] [address] Lavonne Iqbal NP 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 (Primary Dx) 07/16/2024 Telephone [facility] Orthopedics [facility] Medicine [address] [place] [address] [address] [address] Arpan Iyer MD 07/03/2024 1:00 PM EXPERIENCE DESIGNER Telemedicine [facility] Orth[facility] Medicine [address] [place] [address] [address] [address] Lavonne Iqbal NP 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 (Primary Dx) from Last 3 Months Surgical History Surgery Date Site/Laterality Comments ANTERIOR CRUCIATE LIGAMENT REPAIR 06/25/1996 - 7 Left ANTERIOR CRUCIATE LIGAMENT REPAIR 06/25/2005 - 6 Right ROTATOR CUFF REPAIR 06/25/2018 - 06/24/2019 Right Medical History Medical History Date Comments Hypertension History of blood clots DVT and P E Family History Medical History Relation Name Comments Diabetes Sister Rhoda Arriaga Relation Name Status Comments Sister Rhoda Arriaga Social History Tobacco Use Types Packs/Day Years [...] on file Legal Sex Male 9:18 AM EXPERIENCE DESIGNER Gender Identity Not on file Sexual Orientation Not on file Obstetrics History Last Filed Vital Signs Vital Sign Reading Time Taken Comments Blood Pressure 132/82 08/05/2024 1:04 PM EXPERIENCE DESIGNER Pulse 93 08/05/2024 1:04 PM EXPERIENCE DESIGNER Temperature 36.7 C (98.1 F) 06/11/2024 2:28 PM EXPERIENCE DESIGNER Respiratory Rate 18 06/11/2024 2:28 PM EXPERIENCE DESIGNER Oxygen Saturation 100% 06/11/2024 2:28 PM EXPERIENCE DESIGNER Inhaled Oxygen Concentration - - Weight 118.4 kg (261 lb) 08/05/2024 1:04 PM EXPERIENCE DESIGNER Height 188 cm (6' 2 ) 08/05/2024 1:04 PM EXPERIENCE DESIGNER Body Mass Index 33.51 08/05/2024 1:04 PM EXPERIENCE DESIGNER Plan of Treatment Health Maintenance Due Date Last Done Comments Colon Cancer Screening-Colonoscopy 1977 Depression Screening 1977 Hepatitis C Screening 1977 DTaP/Tdap/Td Vaccine (1 - Tdap) 1988 Hepatitis B Screening 09/01/1995 Regular Well Visit/Exam 18-64 09/01/1995 Influenza Vaccine (Season Ended) 2025 Pneumococcal vaccine <65 Aged Out No longer eligible based on patient's age to complete this topic Medical Devices Implanted Type Area Mail Service Coordinator Device Identifier Shelf Expiration Date Model / Serial / Lot Depuy Orthopaedics Inc [place] 58mm 36mm Hip Neutral Liner Acetabular Altrx Sterile Latex Free [id number] - [id number] Implanted:Qty: 1 on 06/11/2024 by Arpan Iyer MD at [facility] Left: Hip Depuy Orthopaedics Inc [id number] 02/22/2029 [id number] / / [id number] Depuy [employer] [place] 58mm Sector Hip Shell Acetabular Gription Sterile Latex Free [id number] - [id number] Implanted:Qty: 1 on 06/11/2024 by Arpan Iyer MD at [facility] Left: Hip Depuy Orthopaedics Inc [id number] 03/24/2034 [id number] / / [id number] Depuy [employer] [place] 6.5mm 35mm Acetabular Cancellous Screw Bone Sterile 1217-35-500 - [id number] Implanted:Qty: 1 on 06/11/2024 by Arpan Iyer MD at [facility] Left: Hip Depuy Orthopaedics Inc [id number] 06/24/2033 1217-35-500 / / [id number] Depuy [employer] Inc [place] 6.5mm 35mm Acetabular Cancellous Screw Bone Sterile 1217-35-500 - [id number] Implanted:Qty: 1 on 06/11/2024 by Arpan Iyer MD at [facility] Left: Hip Depuy Orthopaedics Inc [id number] 01/22/2034 1217-35-500 / / [id number] Depuy Orthopaedics Inc Actis L107 Mm Collar Hip 6 High Offset Stem Femoral [id number] - [id number] Implanted:Qty: 1 on 06/11/2024 by Arpan Iyer MD at [facility] Left: Hip Depuy Orthopaedics Inc [id number] 09/22/2033 [id number] / / [id number] Depuy Orthopaedics Inc Articul/Alhaji 36mm Cementless Hip +8.5mm 06/07 Taper Head Femoral Latex Free 1365-36-330 - [id number] Implanted:Qty: 1 on 06/11/2024 by Arpan Iyer MD at [facility] Left: Hip DepInstapio Orthopaedics Inc [id number] 01/22/2029 1365-36-330 / / [id number] Procedures Procedure Name Priority Date/Time Associated Diagnosis Comments XR HIP LEFT 2 OR 3 VIEWS Schedule Routine, Read Routine (OP Routine) 08/05/2024 1:00 PM EXPERIENCE DESIGNER 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 from Last 3 Months Results * XR Hip Left 2 or 3 Views (08/05/2024 1:00 PM EXPERIENCE DESIGNER) Anatomical Region Laterality Modality Lower Extremities, Hip, Pelvis Left D igital Radiography Narrative 08/05/2024 1:15 PM EXPERIENCE DESIGNER Radiographs taken of the left hip today reveal a total hip arthroplasty in appropriate position with no interval change from the time of surgery. Lavonne Iqbal NP IMG XR PROCEDURES Final Result from Last 3 Months Insurance [employer] [id number] [employer] Care Teams Automobile Washer Steam Relationship Specialty Start Date End Date Jose Mccloud MD PCP - General Family Practice 02/12/24 Arpan Iyer MD 4 [facility] [address] [address] Surgeon Orthopedic Surgery 06/11/24
--- OUTSIDE RECORDS SUMMARY | 2024-09-30 13:13 | XMS_ITS | Encounter Summary ---
Author Organization [facility] Address [address] [place] [address] Care Team Providers Care Transition Manager Name Role Phone Unavailable Primary Care Provider Unavailabl e Reason for Visit * Reason Onset Date Comments FRecurretn PE and DVT 10/02/2023 Spoke W/ Marita austin @ Dr [facility]re[facility]'s exchange research and evaluation manager Encounter Details Date Type Department Care Team (Late Contact Info) Description 10/02/2023 Telephone [facility] Admitting [address] [place] [address] [place] [address] [address] FRecurretn PE and DVT (Spoke Demond/ Janette @ Dr Schreiber's exchange research and evaluation manager) Social History Tobacco Use Types Packs/Day Years Used Date Smoking Tobacco: Never Assessed Feeling Safe Answer Date Recorded Are you [...] on file documented as of this encounter Plan of Treatment Upcoming Encounters Date Type Department Care Team (Late Contact Info) Description 11/04/2024 3:45 PM CDT Office Visit [facility] Oncology [facility] H[facility]ology - Tab [address] [place] [address] Gibran Wilson MD [address] [facility] [address] [place] [address] documented as of this encounter Visit Diagnoses Not on filedocumented in this encounter
--- OUTSIDE RECORDS SUMMARY | 2024-09-30 13:13 | XMS_ITS | Clinical Summary ---
Author Organization [facility] Address [address] [place] [address] Care Team Providers Care Cloud Software Engineer Name Role Phone Jeni Khan MD Unavailable [phone] Cheryl Lee MD Primary Care Provider [phone] Allergies Active Allergy Reactions Criticality Noted Date Comments Hydrocodone-Acetaminophen Hallucinations ,Nausea and Vomiting Medium 08/09/2016 Meloxicam Unknown 12/01/2016 Medications magnesium oxide 250 MG tablet Take 1 tablet (250 mg total) by mouth daily. Active fish oil 1000 MG Cap capsule Take 1 capsule (1,000 mg total) by mouth 2 (two) times daily. Active Probiotic Product (PROBIOTIC ADVANCED) Cap Take 4 capsules by mouth daily. Active Elastic Bandages & Supports (KNEE BRACE) MiscIndications:C hronic pain of left knee Left knee brace, donjoy, hinge with padding. Replace current brace. 1 each 0 Active Vitamin D3, cholecalciferol, 2000 UNIT Tab tablet Take 1 tablet (2,000 Units total) by mouth daily. Active omeprazole (PRILOSEC) 20 MG capsuleIndication s:Reflux laryngitis TAKE 1 CAPSULE(20 MG) BY MOUTH TWICE DAILY ON AN EMPTY STOMACH 60 capsule 3 3 Active amLODIPine (NORVASC) 10 MG tabletIndications :Essential hypertension,Obes ity, unspecified classification, unspecified obesity type, unspecified whether serious comorbidity present TAKE 1 TABLET BY MOUTH EVERY EVENING FOR BLOOD PRESSURE 90 tablet 1 3 Active lisinopril (PRINIVIL) 20 MG tabletIndications :Essential hypertension TAKE 1 TABLET(20 MG) BY MOUTH DAILY 90 tablet 4 Active Active Problems Patient Care Coordination No te Formatting of this note migh t be different from the original. OP PT precautions: screws in left knee, HTN, denies all other pertinent questions. Problem Noted Date Diagnosed Date Family history of clotting disorder 07/27/2020 History of DVT (deep vein thrombosis) 04/27/2020 Overview (04/27/2020): 2012, started in right calf, traveled to right lung and heart. Insomnia 10/16/2019 Primary osteoarthritis of left knee 09/01/2019 History of reconstruction of anterior cruciate ligament tear 09/01/2019 Iliotibial band syndrome affecting left lower le g 09/01/2019 Osteoarthrosis involving lower leg 09/01/2019 S/P left knee arthroscopy 09/01/2019 Traumatic complete tear of right rotator cuff Other chronic pain 06/23/2019 Right shoulder pain 05/08/2019 Osteoarthritis of both hips 02/03/2019 Essential hypertension 01/26/2019 Arthritis of left hip 12/18/2018 Left hip pain 11/06/2018 Morbid obesity 11/06/2018 Migraine 11/06/2018 History of sebaceous cyst 11/06/2018 Left knee pain 11/06/2018 BMI 40.0-44.9, adult 08/28/2017 Migraines Overview (04/27/2020): only on right side of head; uses excedrin and THC, sleep and black room Resolved Problems Problem Noted Date Diagnosed Date Resolved Date Body, loose, knee, left 09/01/201907/2019 Skin change 11/06/2018 04/26/2020 Health maintenance examination 11/06/2018 03/05/2020 Family History Medical History Relation Comments Clotting Disorder Maternal Aunt Clotting Disorder Maternal Uncle Depression Mother Hypertension Mother Depression Sister Diabetes Sister Obesity Sister Relation Status Comments Father Alive Maternal Aunt Maternal Uncle Mother Alive Sister Alive Social History Tobacco Use Types Packs/Day Years Used Date Smoking Tobacco: Never Smokeless Tobacco: Never Tobacco Cessation:Counseling Given: No Alcohol Use Standard Drinks/Week Comments Yes 0 (1 standard drink = 0.6 oz pur e alcohol) 4 shots of vodka/night PHQ-2 Answer Date Recorded PHQ-2 Score - If the patient scores above 3, please move on to questions 3-9 0 12/19/2021 Sex and Gender Information Value Date Recorded Sex Assigned at Not on file Legal Sex Male 8:03 PM CDT Gender Identity Not on file Sexual Orientation Not on file Last Filed Vital Signs Vital Sign Reading Time Taken Comments Blood Pressure 146/90 10/12/2022 1:59 PM CDT Pulse 96 10/12/2022 1:59 PM CDT Temperature 36.7 C (98 F) 10/12/2022 1:59 PM CDT Respiratory Rate 16 10/12/2022 1:59 PM CDT Oxygen Saturation 98% 10/12/2022 1:59 PM CDT Inhaled Oxygen Concentration - - Weight 147 kg (324 lb) 10/12/2022 1:59 PM CDT Height 188 cm (6' 2 ) 10/12/2022 1:59 PM CDT Body Mass Index 41.6 10/12/2022 1:59 PM CDT Plan of Treatment Health Maintenance Due Date Last Done Comments Colorectal Cancer Screening Colonoscopy (10 Years) 1977 Hepatitis C 09/01/1995 DTaP, Tdap and Td Vaccines ( 1 - Tdap) 1996 Hepatitis B Vaccines (1 of 3 - 19+ 3-dose series) 1996 Annual Physical 07/19/2022 07/19/2021, 04/27/2020 COVID-19 Vaccine (1 - 2023-2 5 season) 2024 PHQ-2 (Physician [place]) 06/25/2024 Meningococcal B Vaccine Aged Out No l onger eligible based on patient's age to complete this topic Meningococcal Vaccine Aged Out No judith mihir eligible based on patient's age to complete this topic Pneumococcal Vaccine: Pediatrics (0 to 5 Years) and At-Risk Patients (6 to 64 Years) Aged Out No longer eligible b ased on patient's age to complete this topic RSV Immunizations Under 20 Months Aged Out No longer eligible b ased on patient's age to complete this topic Insurance DAWN Care Teams Cloud Software Engineer Relationship Specialty Start Date End Date Cheryl Lee MD [address] [place] [address] PCP - General FAMILY PRACTICE 02/24/24 Jeni Khan MD ORTHOPAEDIC SURGERY 04/27/20
--- OUTSIDE RECORDS SUMMARY | 2024-09-30 13:13 | XMS_ITS | Encounter Summary ---
Author Organization [facility] Address [facility] [place] [address] Care Team Providers Care Field Service Manager Name Role Phone Jose Mccloud MD Primary Care Provider [phone] [facility] Primary Care Provider Unav ailable Jeni Khan MD Unavailable [phone] Cheryl Lee MD Primary Care Provider [phone] Encounter Details Date Type Department Care Team (Late st Contact Info) Description 12/12/2018 Hosp Visit [facility] Outpatient Therapy [place], [place] [id number] Homa Mendieta S, PT [place], [place] [id number] Social History Tobacco Use Types Packs/Day Years [...] as of this encounter Plan of Treatment Not on file documented as of this encounter Visit Diagnoses Diagnosis Left hip pain- Primary Pain in joint, pelvic region and thigh documented in this encounter Care Teams Field Service Manager Relationship Specialty Start Date End Date Jose Mccloud MD PCP - General FAMILY PRACTICE 10/01/18 04/26/20 [facility] PCP - General NURSE PRACTITIONER 04/27/20 02/23/24 Cheryl Lee MD [address] [place] [address] PCP - General FAMILY PRACTICE 02/24/24 Jeni Khan MD ORTHOPAEDIC SURGERY 04/27/20 documented as of this encounter
== END 2024-09-30 11:44 | disposition home or self-care (01) ==
PROVIDERS: PCP Family Medicine; Visit Provider Family Medicine
DX: R07.89 Other chest pain (principal); R00.2 Palpitations; R94.31 Abnormal electrocardiogram [ECG] [EKG]
CPT/HCPCS: 93005

== ENCOUNTER 2024-10-01 15:37 | Outpatient (CLI) | payer BC, SELFPAY ==
[2024-10-01 15:59] LABS: Hematocrit 44.4 % (42.0-52.0); Hemoglobin 16.3 g/dL (14.0-18.0); Mean Corpuscular HGB Conc 36.7 g/dl (32-36); Mean Corpuscular Hemoglobin 38.2 pg (26-34); Mean Platelet Volume 8.3 fl (7.4-10.4); Platelet Count Result 205 k/mm3 (150-375); Red Blood Count 4.27 M/mm3 (4.6-6.20); Red Cell Distribution Width 12.3 % (11.5-14.5); White Blood Count 7.5 K/mm3 (4.5-10.0)
[2024-10-01 16:32] LABS: Troponin I < 0.012 ng/mL (0.000-0.034)
--- OUTSIDE RECORDS SUMMARY | 2024-10-01 16:51 | XMS_ITS | Clinical Summary ---
Author Organization [facility] [employer] Address [address] [place] [address] Care Team Providers Care Final Assembler Boat Name Role Phone Jose Mccloud MD Primary Care Provider [phone] Source Comments [facility] [employer],non-owned Affiliates and Associated Physician Practices is amultiple site organization consisting of ambulatory clinics and hospital sitesin [place], [place], [place] and [place]. This disclosure is being madepursuant to the Care Everywhere program and may not contain all information available regarding this patient. Last updated 18.[employer] Allergies Active Allergy Reactions Criticality Noted Date [...] by mouth every 12 hours 12/01/2016 Active Delta-3 Fatty Acids (FISH OIL) 1000 MG capsule [...] daily 02/25/2020 Active ergocalciferol (DRISDOL) 1.25 MG (88404 UT) capsule Take 50,000 Units by mouth [...] Never Smokeless Tobacco: Never Comments:States he is reese Payne at present for his paincontrol.- TS [...] 09/16/2020 COVID-19 VACCINE (2023-2 5 season) 2024 DEPRESSION SCREENING 06/25/2024 LIPID TESTING 01/12/2025 01/13/2020, 11/05/2018 INFLUENZA VACCINE (Season Ended) 2025 ZOSTER VACCINE (1 of 2) 09/01/2027 HIB [...] this topic Medical Devices Implanted Type Area Belt Fixer Device Identifier Shelf Expiration Date Model / Serial / Lot Healix Advance Br [place] W/Permatape Implanted:Qty: 1 on 08/20/2019 by Brian Johnson MD at [facility] Right: Shoulder 07/25/2020 [id number] / / [id number] [place] Sut Healix Adv 5.5mm Kntls Br Implanted:Qty: 1 on 08/20/2019 by Brian Johnson MD at [facility] Right: Shoulder [employer] 07/25/2021 [id number] / / [id number] Care Teams Final Assembler Boat Relationship Specialty Start Date End Date Jose Mccloud MD [facility] - General 02/03/19
--- OUTSIDE RECORDS SUMMARY | 2024-10-01 16:52 | XMS_ITS | Referral Summary ---
Author Organization [facility] Medical Office Building B Address [address] [place] [address] Care Team Providers Care Milling Machine Operator Name Role Phone Jose Mccloud MD Primary Care Provider [phone] Arpan Iyer MD Unavailable [phone] Encounters Date Type Department Care Team Description 08/05/2024 Telephone [facility] Medical [facility] Orthopedics and Sports Medicine [address] [place] [address] [address], [place] [address] Lavonne Iqbal NP 08/05/2024 Documentation [facility] Orthopedics and Sports Medicine [address] [facility] [address], [place] [address] Anna Nelson MA 08/05/2024 7:47 AM NURSE ANESTHETIST - 08/05/2024 11:59 PM NURSE ANESTHETIST Hospital Encounter [facility] Orthopedics and Sports Medicine [address] [place] [address] [address] [place] [address] Discharge Disposition: Discharge to home or self care 08/05/2024 1:00 PM NURSE ANESTHETIST Office Visit [facility] Orthopedics and Sports Medicine [address] [place] [address] [address] [place] [address] Lavonne Iqbal NP 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 (Primary Dx) 07/29/2024 Telephone [facility] Vascular and Vein Surgery [address] [facility] [address] [place] [address] Jael Vázquez 07/17/2024 Orders Only [facility] Orthopedics and Sports Medicine [address] [place] [address] [address] [place] [address] Lavonne Iqbal NP 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 (Primary Dx) 07/16/2024 Telephone [facility] Orthopedics and Sports Medicine [address] [place] [address] [address] [place] [address] Arpan Iyer MD 07/03/2024 1:00 PM NURSE ANESTHETIST Telemedicine [facility] Orthopedics and Sports Medicine [address] [place] [address] [address] [place] [address] Lavonne Iqbal NP Aftercare following left hip [...] on file Legal Sex Male 9:18 AM NURSE ANESTHETIST Gender Identity Not on file Sexual Orientation Not on file Last Filed Vital Signs Vital Sign Reading Time Taken Comments Blood Pressure 132/82 08/05/2024 1:04 PM NURSE ANESTHETIST Pulse 93 08/05/2024 1:04 PM NURSE ANESTHETIST Temperature 36.7 C (98.1 F) 06/11/2024 2:28 PM NURSE ANESTHETIST Respiratory Rate 18 06/11/2024 2:28 PM NURSE ANESTHETIST Oxygen Saturation 100% 06/11/2024 2:28 PM NURSE ANESTHETIST Inhaled Oxygen Concentration - - Weight 118.4 kg (261 lb) 08/05/2024 1:04 PM NURSE ANESTHETIST Height 188 cm (6' 2 ) 08/05/2024 1:04 PM NURSE ANESTHETIST Body Mass Index 33.51 08/05/2024 1:04 PM NURSE ANESTHETIST Plan of Treatment Not on file Medical Devices Implanted Type Area Perforating Machine Operator Device Identifier Shelf Expiration Date Model / Serial / Lot Depuy Orthopaed[employer] Inc [place] 58mm 36mm Hip Neutral Liner Acetabular Altrx Sterile Latex Free [id number] - [id number] Implanted:Qty: 1 on 06/11/2024 by Arpan Iyer MD at [facility] Left: Hip Depuy Orthopaedics Inc [id number] 02/22/2029 [id number] / / [id number] Depuy Orth[employer] Inc [place] 58mm Sector Hip Shell Acetabular Gription Sterile Latex Free [id number] - [id number] Implanted:Qty: 1 on 06/11/2024 by Arpan Iyer MD at [facility] Left: Hip Depuy Orthopaedics Inc [id number] 03/24/2034 [id number] / / [id number] Depuy Orthopaed[employer] Inc [place] 6.5mm 35mm Acetabular Cancellous Screw Bone Sterile 1217-35-500 - [id number] Implanted:Qty: 1 on 06/11/2024 by Arpan Iyer MD at [facility] Left: Hip Depuy Orthopaedics Inc [id number] 06/24/2033 1217-35-500 / / [id number] Depuy Orthopaed[employer] Inc [place] 6.5mm 35mm Acetabular Cancellous Screw Bone Sterile 1217-35-500 - [id number] Implanted:Qty: 1 on 06/11/2024 by Arpan Iyer MD at [facility] Left: Hip Depuy Orthopaedics Inc [id number] 01/22/2034 1217-35-500 / / [id number] Depuy Orthopaedics Inc Actis L107 Mm Collar Hip 6 High Offset Stem Femoral [id number] - [id number] Implanted:Qty: 1 on 06/11/2024 by Arpan Iyer MD at [facility] Left: Hip Depuy Orthopaedics Inc [id number] 09/22/2033 [id number] / / [id number] Depuy Orthopaedics Inc Articul/Alhaji 36mm Cementless Hip +8.5mm 06/07 Taper Head Femoral Latex Free 1365-36-330 - [id number] Implanted:Qty: 1 on 06/11/2024 by Arpan Iyer MD at [facility] Left: Hip Depuy Orthopaedics Inc [id number] 01/22/2029 1365-36-330 / / [id number] Procedures Procedure Name Priority Date/Time Associated Diagnosis Comments XR HIP LEFT 2 OR 3 VIEWS Schedule Routine, Read Routine (OP Routine) 08/05/2024 1:00 PM NURSE ANESTHETIST 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 from Last 3 Months Results * XR Hip Left 2 or 3 Views (08/05/2024 1:00 PM NURSE ANESTHETIST) Anatomical Region Laterality Modality Lower Extremities, Hip, Pelvis Left D igital Radiography Narrative 08/05/2024 1:15 PM NURSE ANESTHETIST Radiographs taken of the left hip today reveal a total hip arthroplasty in appropriate position with no interval change from the time of surgery. Lavonne Iqbal CLIENT APPLICATION SUPPORT ENGINEER IMG XR PROCEDURES Final Result from Last 3 Months Insurance [employer] ACCESS OOS [employer] ACCESS OOS Care Teams Milling Machine Operator Relationship Specialty Start Date End Date Jose Mccloud MD PCP - General Family Practice 02/12/24 Arpan Iyer MD [address] [place] [address] [place] [address] Surgeon Orthopedic Surgery 06/11/24
--- OUTSIDE RECORDS SUMMARY | 2024-10-01 16:52 | XMS_ITS | Clinical Summary ---
Author Organization [facility] Address [address] [place] [address] Care Team Providers Care Inclusion Intern Name Role Phone Jeni Khan MD Unavailable [phone] Cheryl Lee MD Primary Care Provider [phone] Allergies Active Allergy Reactions Criticality Noted Date [...] - 2023-2 5 season) 2024 PHQ-2 (Physician [place]) 06/25/2024 Meningococcal B Vaccine Aged Out No [...] complete this topic Insurance DAWN Care Teams Inclusion Intern Relationship Specialty Start Date End Date Cheryl Lee MD [address] [place] [address] PCP - General FAMILY PRACTICE 02/24/24 Jeni Khan MD ORTHOPAEDIC SURGERY 04/27/20
--- OUTSIDE RECORDS SUMMARY | 2024-10-01 16:52 | XMS_ITS | Continuity of Care Document ---
Author Organization [facility] Address [address] [place] [address] Phone Care Team Providers Care Vigoureux Printer Name Role Phone Harley Corado MD Unavailable Unavailable Allergies, Adverse Reactions, Alerts Substance Reaction Status Criticality No Known Drug Allergies Active No I nformation Medications Medication Instructions Dosage Effective Dates (start - stop) Status Comments amlodipine 2.5 mg tablet take 1 tablet by oral route every day 2.5 MG - No Longer Active [place]-3 350 mg-235 mg-90 mg-597 mg capsule,delayed release - No Longer Active Calcium 500 500 mg calcium (1,250 mg) tablet - No Longer Active Tylenol PM Extra Strength 25 mg-500 mg tablet take 2 tablet by oral route every day at bedtime 2.00 tablet - No Longer Active Contrave 8 mg-90 mg tablet,extended release take 2 tablet by oral route 2 times every day in the morning and evening 2.00 tablet - No Longer Active Roseanne Aspirin 325 mg tablet take 1 tablet by oral route every day 325 MG - No Longer Active magnesium 200 mg tablet - No Longer Active Procedures Procedure Date X-ray Exam Hip Unilat With Pelvis When P erf 2-3 View X-ray exam both knees, standing 020 X-ray exam knee, 1 or 2 views 0 X-ray exam shoulder minimum 2 views I M E No Show Appointment Pre Payment Office/outpatient visit,est, mod 2006 MRI upr extr joint, w/o contrast 2006 MRI upr extr joint, w/o contrast 2006 Office/outpatient visit,new, mod 2006 X-ray exam of brando, complete Advance Directives Directive Yes / No Effective Date File Name No Information Encounters Encounter Description Practice Location Reason(s) For Visit Diagnoses Date Provider Providers Copied on Encounter [facility], [address] [place] [address], [id number], [place] tel:[phone] [facility] right shoulder left knee (chief complaint) Pain in right shoulderPain in left kneePain in left hip 0 Mickie Souza. [address] [place] [address], [id number] , [place]. tel: [phone] [facility], [address] [place] [address], [id number], [place] tel:[phone] [facility] No Information 0 Mickie Souza. [address] [place] [address], [id number] , [place]. tel: [phone] [facility], [address] [place] [address], [id number], [place] tel:[phone] [facility] No Information 0 Mickie Souza. [address] [place] [address], [id number] , [place]. tel: [phone] Referring Provider: PCP Information Denied. Office/outpat ient visit,est, mod [facility], [address] [place] [address], [id number], [place] tel:[phone] [facility] No Information 7 Kamari Arevalo. [address] [place] [address], [id number] , [place]. tel: [phone] [facility], [address] [address], [place], [place], [id number], [phone] [facility] No Information 7 Kamari Arevalo. [address] [facility] [facility] [address], [place], [place], [id number] , [place]. tel: [phone] Referring Provider: Mickey Wilhelm, [address] [facility] [address], [place], [address]. tel:[phone] Office/outpat ient visit,[facility], [facility], [address] [address], [place], [place], [id number], [phone] [facility] [facility] No Information Kamari Arevalo. [address] [facility], [address] [address], [place], [place], [id number] , . tel: [phone] Family History Family Member Type Diagnosis Age At Onset No Information Payers Payer name Insurance type Covered democrat ID Authoriza tion(s) No Information Social History Type Description Quantity Date Captured Comments Alcohol Use Details Unknown Caffeine Use Details Unknown Tobacco Use Status Current non-smoker Smoking Status Never smoker Non-Smoking Tobacco Use Details : No Details Available : No Details Available Sex Male Vital Signs Date / Time: Height Weight BMI Pulse Rate Blood Pressure Temperature Respiratory Rate Body Surface Area Head Circumference Head Circ. Percentile Wt./Reuben. Percentile BMI percentile Pulse Ox Inhaled Ox 4:15 PM 74.00 in 124.738 kg (275.00 lbs) 35.3 1 kg/m eter (2) Chief Complaint And Reason For Visit From encounter dated '03/02/2020 16:00'. right shoulder left knee (chief complaint). Description: Niko presents to the office for right shoulder left knee complaints. Reason For Referral Reason For Referral No Information Plan Of Treatment Date Type Action Status Referral Ordered: X-ray exam both knees, standing ordered Referral Ordered: X-ray exam shoulder minimum 2 views RT ordered Referral Ordered: X-ray Exam Hip Unilat With Pelvis When Perf 2-3 View LT ordered Referral Ordered: X-ray exam knee, 1 or 2 views LT ordered History Of Present Illness Encounter Date Complaint History Of Prese nt Illness right shoulder left knee Niko p resents to the office for right shoulder left knee complaints. Functional Status Date Functional Assessmen t No Information Instructions Date Instruction Additional Infor mation No Information Assessments Type Assessment Date assessment Pain in right shoulder 20 assessment Pain in left knee assessment Pain in left hip Patient Care Teams Name Effective Dates (start - stop) Status Members No Information
--- OUTSIDE RECORDS SUMMARY | 2024-10-01 16:52 | XMS_ITS | Clinical Summary ---
[facility] Address [address] [place] [address] Care Team Providers Care Mortar Mixer Name Role Phone Jose Mccloud MD Primary Care Provider [phone] Arpan Iyer MD Unavailable [phone] Allergies Active Allergy Reactions Criticality Noted Date [...] Department Care Team Description 08/05/2024 1:00 PM HAND TRUCKER Office Visit [facility] Orthopedics and Sports Medicine [address] [place] [address] [address] [place] [address] Lavonne Iqbal NP 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 (Primary Dx) 08/05/2024 7:47 AM HAND TRUCKER - 08/05/2024 11:59 PM HAND TRUCKER Hospital Encounter [facility] Orthopedics and Sports Medicine [address] [place] [address] [address] [place] [address] Discharge Disposition: Discharge to home or self care 08/05/2024 Telephone [facility]oped[facility] Medicine [address] [place] [address], [place] [address] Lavonne Iqbal NP 08/05/2024 Documentation [facility] [address] [place] [address], [place] [address] Anna Nelson MA 07/29/2024 Telephone [facility] Vascular and Vein Surgery [address] [place] [address] Jael Vázquez 07/17/2024 Orders Only [facility] Medicine [address] [place] [address] [address] [place] [address] Lavonne Iqbal NP 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 (Primary Dx) 07/16/2024 Telephone [facility]opedics [facility] Medicine [address] [place] [address] [address], [place] [address] Arpan Iyer MD 07/03/2024 1:00 PM HAND TRUCKER Telemedicine [facility] Medicine [address] [place] [address] [address], [place] [address] Lavonne Iqbal NP Aftercare following left hip [...] on file Legal Sex Male 9:18 AM HAND TRUCKER Gender Identity Not on file Sexual Orientation Not on file Obstetrics History Last Filed Vital Signs Vital Sign Reading Time Taken Comments Blood Pressure 132/82 08/05/2024 1:04 PM HAND TRUCKER Pulse 93 08/05/2024 1:04 PM HAND TRUCKER Temperature 36.7 C (98.1 F) 06/11/2024 2:28 PM HAND TRUCKER Respiratory Rate 18 06/11/2024 2:28 PM HAND TRUCKER Oxygen Saturation 100% 06/11/2024 2:28 PM HAND TRUCKER Inhaled Oxygen Concentration - - Weight 118.4 kg (261 lb) 08/05/2024 1:04 PM HAND TRUCKER Height 188 cm (6' 2 ) 08/05/2024 1:04 PM HAND TRUCKER Body Mass Index 33.51 08/05/2024 1:04 PM HAND TRUCKER Plan of Treatment Health Maintenance Due Date Last Done Comments Colon Cancer Screening-Colonoscopy 1977 Depression Screening 1977 Hepatitis C Screening 1977 DTaP/Tdap/Td Vaccine (1 - Tdap) 1988 Hepatitis B Screening 09/01/1995 Regular Well Visit/Exam 18-64 09/01/1995 Influenza Vaccine (Season Ended) 2025 Pneumococcal vaccine <65 Aged Out No longer eligible based on patient's age to complete this topic Medical Devices Implanted Type Area Environmental Services Director Device Identifier Shelf Expiration Date Model / Serial / Lot [employer] A[place] 58mm 36mm Hip Neutral Liner Acetabular Altrx Sterile Latex Free [id number] - [id number] Implanted:Qty: 1 on 06/11/2024 by Arpan Iyer MD at [facility] Left: Hip [employer] [id number] 02/22/2029 [id number] / / [id number] [employer] [place] 58mm Sector Hip Shell Acetabular Gription Sterile Latex Free [id number] - [id number] Implanted:Qty: 1 on 06/11/2024 by Arpan Iyer MD at [facility] Left: Hip [employer] [id number] 03/24/2034 [id number] / / [id number] [employer] [place] 6.5mm 35mm Acetabular Cancellous Screw Bone Sterile 1217-35-500 - [id number] Implanted:Qty: 1 on 06/11/2024 by Arpan Iyer MD at [facility] Left: Hip [employer] [id number] 06/24/2033 1217-35-500 / / [id number] [employer] [place] 6.5mm 35mm Acetabular Cancellous Screw Bone Sterile 1217-35-500 - [id number] Implanted:Qty: 1 on 06/11/2024 by Arpan Iyer MD at [facility] Left: Hip [employer] [id number] 01/22/2034 1217-35-500 / / [id number] [employer] Actis L107 Mm Collar Hip 6 High Offset Stem Femoral [id number] - [id number] Implanted:Qty: 1 on 06/11/2024 by Arpan Iyer MD at [facility] Left: Hip [employer] [id number] 09/22/2033 [id number] / / [id number] [employer] Articul/Alhaji 36mm Cementless Hip +8.5mm 06/07 Taper Head Femoral Latex Free 1365-36-330 - [id number] Implanted:Qty: 1 on 06/11/2024 by Arpan Ieyr MD at [facility] Left: Hip [employer] [id number] 01/22/2029 1365-36-330 / / [id number] Procedures Procedure Name Priority Date/Time Associated Diagnosis Comments XR HIP LEFT 2 OR 3 VIEWS Schedule Routine, Read Routine (OP Routine) 08/05/2024 1:00 PM HAND TRUCKER 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 from Last 3 Months Results * XR Hip Left 2 or 3 Views (08/05/2024 1:00 PM HAND TRUCKER) Anatomical Region Laterality Modality Lower Extremities, Hip, Pelvis Left D igital Radiography Narrative 08/05/2024 1:15 PM HAND TRUCKER Radiographs taken of the left hip today reveal a total hip arthroplasty in appropriate position with no interval change from the time of surgery. Lavonne Iqbal NP IMG XR PROCEDURES Final Result from Last 3 Months Insurance [place] [phone] [employer] Care Teams Mortar Mixer Relationship Specialty Start Date End Date Jose Mccloud MD PCP - General Family Practice 02/12/24 Arpan Iyer MD 4 [facility] [address] [address] Surgeon Orthopedic Surgery 06/11/24
--- OUTSIDE RECORDS SUMMARY | 2024-10-01 16:52 | XMS_ITS | Clinical Summary ---
Author Organization [facility] Address [address] [place] [address] Phone Care Team Providers Care Sliver Lap Tender Name Role Phone Unavailable Primary Care Provider [...] Encounters Date Type Department Care Team Description 09/30/2024 External Device Data [facility] ABSTRACTION Provider, Abstract 09/23/2024 External Device Data [facility] ABSTRACTION Provider, Abstract 09/02/2024 External Device Data [facility] ABSTRACTION Provider, Abstract 09/02/2024 External Device Data [facility] ABSTRACTION Provider, Abstract 07/16/2024 Telephone [facility] Oncology and Hematology [address] [place] [address] Gibran Wilson MD Medication Review 07/07/2024 3:45 PM TOOL LATHE OPERATOR Office Visit [facility] Oncology and Hematology Tab [address] [place] [address] Gibran Wilson MD Chronic deep 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 (CMS/HCC) (Primary Dx) from Last 3 Months Family History Medical [...] Comments Blood Pressure 137/86 07/07/2024 3:33 PM TOOL LATHE OPERATOR Pulse 94 07/07/2024 3:33 PM TOOL LATHE OPERATOR Temperature 36.6 C (97.9 F) 07/07/2024 3:33 PM TOOL LATHE OPERATOR Respiratory Rate 16 07/07/2024 3:33 PM TOOL LATHE OPERATOR Oxygen Saturation 97% 07/07/2024 3:33 PM TOOL LATHE OPERATOR Inhaled Oxygen Concentration - - Weight 120.1 kg (264 lb 12.8 oz) 07/07/2024 3:33 PM TOOL LATHE OPERATOR Height 188 cm (6' 2 ) 10/31/2023 2:24 PM CDT Body Mass Index 34 10/31/2023 2:24 PM CDT Plan of Treatment Upcoming Encounters Date Type Department Care Team (Late st Contact Info) Description 11/04/2024 3:45 PM CDT Office Visit [facility] Oncology and Hematology - Tab [address] [facility] [address] [place] [address] Gibran Wilson MD [address] [facility] [address] [place] [address] Health Maintenance Due Date Last [...] patient's age to complete this topic Insurance [facility] PREFERRED [facility] BLUE PREFERRED Advance Directives For more information, please contact: [phone] * Full Code (Latest Code Status on File) Date Activated Date Inactivated Comments 10/02/2023 4:24 AM 10/03/2023 4:05 PM
--- OUTSIDE RECORDS SUMMARY | 2024-10-01 16:52 | XMS_ITS | Encounter Summary ---
Author Organization [facility] Address [facility] [place] [address] Care Team Providers Care Health Care Marketing Manager Name Role Phone Jose Mccloud MD Primary Care Provider [phone] Anisha Yung [facility] Primary Care Provider Unav ailable Jeni Khan MD Unavailable [phone] Cheryl Lee MD Primary Care Provider [phone] Encounter Details Date Type Department Care Team (Late st Contact Info) Description 12/12/2018 Hosp Visit [facility] Outpatient Therapy [place], [place] [id number] Homa Mendieta S, PT [place], [place] [id number] Social History Tobacco Use Types Packs/Day Years [...] thigh documented in this encounter Care Teams Health Care Marketing Manager Relationship Specialty Start Date End Date Jose Mccloud MD PCP - General FAMILY PRACTICE 10/01/18 04/26/20 [facility] - General NURSE PRACTITIONER 04/27/20 02/23/24 Cheryl Lee MD [address] [place] [address] PCP - General FAMILY PRACTICE 02/24/24 Jeni Khan MD ORTHOPAEDIC SURGERY 04/27/20 documented as of this encounter
--- OUTSIDE RECORDS SUMMARY | 2024-10-01 16:52 | XMS_ITS | Encounter Summary ---
Author Organization [facility] Address [address] [place] [address] Care Team Providers Care Vending Technician Name Role Phone Unavailable Primary Care Provider Unavailabl e Encounter Details Date Type Department Care Team (Late st Contact Info) Description 09/30/2024 External Device Data [facility] ABSTRACTION Provider, Abstract NO ADDRESS ON FILE Social History Tobacco Use Types Packs/Day Years Used Date Smoking Tobacco: Never Smokeless Tobacco: Never Alcohol Use Standard Drinks/Week Comments Yes 4 [...] Description 11/04/2024 3:45 PM CDT Office Visit [facility] Oncology and Hematology - [address] [place] [address] Gibran Wilson MD [address] [facility] [address] [place] [address] documented as of this encounter Visit Diagnoses Not on filedocumented in this encounter
--- OUTSIDE RECORDS SUMMARY | 2024-10-01 16:52 | XMS_ITS | Encounter Summary ---
Author Organization [facility] Address [address] [place] [address] Care Team Providers Care Goods Layer Name Role Phone Unavailable Primary Care Provider Unavailabl e Reason for Visit * Reason Onset Date Comments FRecurretn PE and DVT 10/02/2023 Spoke W/ Marita austin @ Dr [facility] exchange distance education faculty liaison Encounter Details Date Type Department Care Team (Late Contact Info) Description 10/02/2023 Telephone [facility] Admitting [address] [place] [address] [place] [address] [address] FRecurretn PE and DVT (Spoke Demond/ Janette @ Dr [facility] exchange distance education faculty liaison) Social History Tobacco Use Types Packs/Day Years [...] Description 11/04/2024 3:45 PM CDT Office Visit [facility] Oncology and Hematology - Tab [address] [facility] [address] [place] [address] Gibran Wilson MD [address] [facility] [address] [place] [address] documented as of this encounter Visit Diagnoses Not on filedocumented in this encounter
--- OUTSIDE RECORDS SUMMARY | 2024-10-01 16:52 | XMS_ITS | Encounter Summary ---
Author Organization [facility] Address [address] [facility] [place] [address] Care Team Providers Care Diabetes Physician Name Role Phone Jose Mccloud MD Primary Care Provider [phone] Encounter Details Date Type Department Care Team (Late st Contact Info) Description 08/21/2019 Telephone [facility] PHYS ANESTHESIA [address] [place] [address] Shawn Sanchez, DO [address] [facility] [address] [place] [address] Social History Tobacco Use Types [...] questions or concerns. Shawn Sanchez DO 08/21/19 MILL OPERATOR documented in this encounter Plan of Treatment Not on file documented as of this encounter Visit Diagnoses Not on filedocumented in this encounter Care Teams Diabetes Physician Relationship Specialty Start Date End Date Jose Mccloud MD PCP - General 02/03/19 documented as of this encounter
--- OUTSIDE RECORDS SUMMARY | 2024-10-01 16:52 | XMS_ITS | Continuity of Care Document ---
Author Organization [facility] Address [address] [address] [place] [address] Phone Care Team Providers Care Rn Primary Care Name Role Phone Lynn WILLIS-NELL Kalyn Unavailable Unavaila ble Allergies, Adverse Reactions, Alerts Substance Reaction Status Criticality meloxicam Active No Information Medications Medication Instructions Dosage Effective Dates (start - stop) Status Comments naproxen 500 mg tablet take 1 tablet by oral route 2 times every day with food 500 MG - Active Procedures Procedure Date RADEX KNE COMPL 4/MORE VIEWS OFFICE/OUTPATIENT VISIT EST OFFICE/OUTPATIENT VISIT EST RADEX KNE COMPL 4/MORE VIEWS OFFICE/OUTPATIENT VISIT EST OFFICE/OUTPATIENT VISIT EST RADEX KNE COMPL 4/MORE VIEWS OFFICE/OUTPATIENT VISIT EST OFFICE/OUTPATIENT VISIT EST POSTOP FOLLOW-UP VISIT POSTOP FOLLOW-UP VISIT OFFICE/OUTPATIENT VISIT EST MRI ANY JT LXTR C-MATRL RADEX KNE COMPL 4/MORE VIEWS OFFICE/OUTPATIENT VISIT EST OFFICE/OUTPATIENT VISIT EST OFFICE/OUTPATIENT VISIT EST OFFICE/OUTPATIENT VISIT EST OFFICE/OUTPATIENT VISIT EST RADEX KNE COMPL 4/MORE VIEWS OFFICE/OUTPATIENT VISIT EST OFFICE/OUTPATIENT VISIT NEW Advance Directives Directive Yes / No Effective Date File Name No Information Encounters Encounter Description Practice Location Reason(s) For Visit Diagnoses Date Provider Providers Copied on Encounter OFFICE/OUTPA TIENT VISIT EST [facility], [address] [address], [place], [address], [place] tel:[phone] [facility] Primary osteoarthritis of left kneePain, joint, knee, left Oct-2 3-201 8 Lynn Steinberga. [address] [facility] [address], [place], [address]. tel:[phone] OFFICE/OUTPA TIENT VISIT EST [facility], [address] [address], [place], [address], [place] tel:[phone] [facility] Primary osteoarthritis of left knee Apr-1 2-201 8 L'Hommedieu Bibb. [address] [facility], [place], [place], [address]. tel:[phone] OFFICE/OUTPA TIENT VISIT EST [facility], [address] [address], [place], [address], [place] tel:[phone] [facility] Primary osteoarthritis of left kneeBody mass index (BMI) 40.0-44.9, adult Mar-0 6-201 8 L'Hommedieu Bibb. [address] [facility], [place], [place], [id number]. tel:[phone] OFFICE/OUTPA TIENT VISIT EST [facility], [address] [address], [place], [address], [place] tel:[phone] [facility] Body mass index (BMI) 38.0-38.9, adultPain, joint, knee, leftPrimary osteoarthritis of left knee Sep-2 6-201 7 L'Hommedieu Bibb. [address] [facility], [place], [place], [address]. tel:[phone] OFFICE/OUTPA TIENT VISIT EST [facility], [address] [address], [place], [address], [place] tel:[phone] [facility] Pain, joint, knee, left Jakob-2 7-201 7 L'Hommedieu Bibb. [address] [facility] , [place], [place], [address]. tel:[phone] [facility], [address] [address], [place], [address], [place] tel:[phone] [facility] No Information Nov- 7 L'Hommedieu Bibb. [address] , [place], [place], [address]. tel:[phone] OFFICE/OUTPA TIENT VISIT EST [facility], [address] [address], [place], [address], [place] tel:[phone] [facility] Body mass index (BMI) 38.0-38.9, adultS/P left knee arthroscopy 7 L'Hommedieu Bibb. [address] , [place], [place], [address]. tel:[phone] [facility], [address] [address], [place], [address], [place] tel:[phone] [facility] S/P left knee arthroscopy 7 Laramore Kalyn. [address], [place], [address]. tel:[phone] [facility], [address] [address], [place], [address], [place] tel:[phone] [facility] S/P left knee arthroscopy 7 Laramore Kalyn. [address], [place], [address]. tel:[phone] [facility], [address] [address], [place], [address], [place] tel:[phone] [facility] Degenerative tear of medial meniscus of left kneeBody, loose, knee, left 7 L'Hommedieu Bibb. [address] , [place], [place], [address]. tel:[phone] OFFICE/OUTPA TIENT VISIT EST [facility], [address], [place], [address], [place] tel:[phone] [facility] Body, loose, knee, leftDegenerati ve tear of medial meniscus of left knee Feb- 0- 7 L'Hommedieu Bibb. [address] , [place], [place], [address]. tel:[phone] [facility], [address] [address], [place], [address], [place] tel:[phone] [facility] No Information Jul-0 6- 7 No Information OFFICE/OUTPA TIENT VISIT EST [facility], [address] [address], [place], [address], [place] tel:[phone] [facility] Primary osteoarthritis of left kneeIliotibial band syndrome affecting left lower legChronic pain of left kneeOther chronic pain 7 L'Hommedieu Bibb. [address] [facility], [place], [place], [address]. tel:[phone] OFFICE/OUTPA TIENT VISIT EST [facility], [address] [address], [place], [address], [place] tel:[phone] [facility] Iliotibial band syndrome affecting left lower leg Apr- 6 L'Hommedieu Bibb. [address] [facility], [place], [place], [address]. tel:[phone] OFFICE/OUTPA TIENT VISIT EST [facility], [address] [address], [place], [address], [place] tel:[phone] [facility] Iliotibial band syndrome affecting left lower leg Sep- 3-201 6 Lynn Mccain. [address] [facility] [address], [place], [address]. tel:[phone] OFFICE/OUTPA TIENT VISIT EST [facility], [address] [address], [place], [address], [place] tel:[phone] [facility] Effusion, left kneePrimary osteoarthritis of left knee 6 L'Hommedieu Bibb. [address] , [place], [place], [address]. tel:[phone] OFFICE/OUTPA TIENT VISIT EST [facility], [address] [address], [place], [address], [place] tel:[phone] [facility] History of reconstruction of anterior cruciate ligament tear 6 L'Hommedieu Bibb. [address] , [place], [place], [address]. tel:[phone] OFFICE/OUTPA TIENT VISIT EST [facility], [address] [address], [place], [address], [place] tel:[phone] [facility] Primary osteoarthritis of left kneeHistory of reconstruction of anterior cruciate ligament tear 6 L'Hommedieu Bibb. [address] [facility], [place], [place], [address]. tel:[phone] [facility], [address] [address], [place], [address], [place] tel:[phone] [facility] Primary osteoarthritis of both knees 5 Beck Jona. [address], [place], [place], [address]. tel:[phone] OFFICE/OUTPA TIENT VISIT NEW [facility], [address] [address], [place], [address], [place] tel:[phone] [facility] Osteoarthritis of both knees 5 Beck Tenorio. [address], [place], [place], [address]. tel:[phone] Family History Family Member Type Diagnosis Age At Onset Mother Problem (finding) Alive and well Payers Payer name Insurance type Covered libertarian ID Authoriza tion(s) No Information Social History Type Description Quantity Date Captured Comments Alcohol Use Details Unknown Caffeine Use Details Unknown Tobacco Use Status No Information Smoking Status No Information Sex Male Chief Complaint And Reason For Visit No Information Reason For Referral Reason For Referral No Information Plan Of Treatment Date Type Action Status Referral Ordered: RADEX KNE COMPL 4/MORE VIEWS LT knee ordered Referral Ordered: MRI ANY JT LXTR C-MATRL LT knee Appointment date/timeframe: 07/31/2016 ordered Referral Ordered: INJECTION LT Appointment date/timeframe: 02/01/2016 ordered Referral Ordered: INJECTION Bilateral knee ordered Referral Ordered: RADEX KNE COMPL 4/MORE VIEWS LT ordered History Of Present Illness Encounter Date Complaint History Of Prese nt Illness No Information Functional Status Date Functional Assessmen t No Information Instructions Date Instruction Additional Infor matjeff Weight loss reduces stress on joints. Related to Primary osteoarthritis of left knee Weight loss reduces stress on joints. Related to Primary osteoarthritis of left knee Giving encouragement to exercise Related to Body mass index (BMI) 40.0-44.9, adult Apply ice 20 min per hour Relate d to Primary osteoarthritis of left knee Giving encouragement to exercise Related to Body mass index (BMI) 38.0-38.9, adult Discussed treatment options Rela claire to Pain, joint, knee, left Call for increase in pain Relate d to Pain, joint, knee, left Giving encouragement to exercise Related to Body mass index (BMI) 38.0-38.9, adult Take medication as described Rel ated to S/P left knee arthroscopy Discussed treatment options Rela claire to Degenerative tear of medial meniscus of left knee Home exercise program. Related t o Primary osteoarthritis of left knee Home exercise program. Related t o Iliotibial band syndrome affecting left lower leg Assessments Type Assessment Date assessment Primary osteoarthritis of left k nee assessment Pain, joint, knee, left 018 Patient Care Teams Name Effective Dates (start - stop) Status Members No Information
== END 2024-10-01 15:38 | disposition home or self-care (01) ==
PROVIDERS: PCP Family Medicine; Visit Provider Family Medicine
DX: R07.89 Other chest pain (principal); R00.2 Palpitations; D75.1 Secondary polycythemia; R79.89 Other specified abnormal findings of blood chemistry
CPT/HCPCS: 36415; 84484; 85027

== ENCOUNTER 2024-10-03 08:51 | Outpatient (CLI) | payer BC, SELFPAY ==
--- NOTE | ~2024-10-03 | US_ITS ---
EXAMINATION:US venous doppler LE RT INDICATION:Chronic DVT. TECHNIQUE: Multiple grayscale, color flow and Doppler images of the right lower extremity deep venous systems were obtained and reviewed. COMPARISON ultrasound dated 06/02/2024: FINDINGS: There is chronic deep venous thrombosis of the right femoral and popliteal veins. The remai nder of the right lower extremity veins are patent with normal flow, compressibility and augmentation . IMPRESSION: 1: Chronic deep venous thrombosis of the right femoral and popliteal veins. Reviewed, dictated and finalized at location A.
--- OUTSIDE RECORDS SUMMARY | 2024-10-03 09:05 | XMS_ITS | Clinical Summary ---
Author Organization [facility] Address [address] [place] [address] Care Team Providers Care Waitstaff Name Role Phone Jose Mccloud MD Primary Care Provider [phone] Source Comments [facility],non-owned Affiliates and Associated Physician Practices is amultiple site organization consisting of ambulatory clinics and hospital sitesin [place], [place], [place] and [place]. This disclosure is being madepursuant to the Care Everywhere program and may not contain all information available regarding this patient. Last updated 18.[facility] Allergies Active Allergy Reactions Criticality Noted Date [...] by mouth every 12 hours 12/01/2016 Active [place]-3 Fatty Acids (FISH OIL) 1000 MG capsule [...] daily 02/25/2020 Active ergocalciferol (DRISDOL) 1.25 MG (77370 UT) capsule Take 50,000 Units by mouth [...] this topic Medical Devices Implanted Type Area Assembly Press Operator Device Identifier Shelf Expiration Date Model / Serial / Lot Healix Advance Br Marshall W/Permatape Implanted:Qty: 1 on 08/20/2019 by Brian Johnson MD at [facility] Right: Shoulder 07/25/2020 [id number] / / [id number] Marshall Sut Healix Adv 5.5mm Kntls Br Implanted:Qty: 1 on 08/20/2019 by Brian Johnson MD at [facility] Right: Shoulder [employer] 07/25/2021 [id number] / / [id number] Care Teams Waitstaff Relationship Specialty Start Date End Date Jose Mccloud MD [facility] - General 02/03/19
--- OUTSIDE RECORDS SUMMARY | 2024-10-03 09:05 | XMS_ITS | Clinical Summary ---
Author Organization [facility] Address [address] [place] [address] Care Team Providers Care Circulation Crew Leader Name Role Phone Jeni Khan MD Unavailable [phone] Cheryl Lee MD Primary Care Provider [phone] Allergies Active Allergy Reactions Criticality Noted Date [...] - 2023-2 5 season) 2024 PHQ-2 (Physician [place]) 06/25/2024 Meningococcal B Vaccine Aged Out No [...] complete this topic Insurance DAWN Care Teams Circulation Crew Leader Relationship Specialty Start Date End Date Cheryl Lee MD [address] [place] [address] PCP - General FAMILY PRACTICE 02/24/24 Jeni Khan MD ORTHOPAEDIC SURGERY 04/27/20
--- OUTSIDE RECORDS SUMMARY | 2024-10-03 09:05 | XMS_ITS | Encounter Summary ---
Author Organization [facility] Address [address] [place] [address] Care Team Providers Care Director Information Security Name Role Phone Unavailable Primary Care Provider Unavailabl e Reason for Visit * Reason Onset Date Comments FRecurretn PE and DVT 10/02/2023 Spoke W/ Marita austin @ [facility] exchange construction project coordinator Encounter Details Date Type Department Care Team (Late Contact Info) Description 10/02/2023 Telephone [facility] Admitting [address] [place] [address] [place] [address] [address] FRecurretn PE and DVT (Spoke Demond/ Janette @ Dr [facility] exchange construction project coordinator) Social History Tobacco Use Types Packs/Day Years [...] Description 11/04/2024 3:45 PM CDT Office Visit [facility] Oncology and Hematology - Tab [address] [facility] [address] [place] [address] Gibran Wilsno MD [address] [facility] [address] [place] [address] documented as of this encounter Visit Diagnoses Not on filedocumented in this encounter
--- OUTSIDE RECORDS SUMMARY | 2024-10-03 09:05 | XMS_ITS | Clinical Summary ---
Author Organization [facility] Address [address] [place] [address] Phone Care Team Providers Care Pastry Artist Name Role Phone Unavailable Primary Care Provider [...] Data STL ABSTRACTION Provider, Abstract 07/16/2024 Telephone [facility] Oncology and Hematology Tab [address] [place] [address] Gibran Wilson MD Medication Review 07/07/2024 3:45 PM DIE CUTTER Office Visit [facility] Oncology and Hematology Tab [address] [place] [address] Gibran Wilson MD Chronic deep vein thrombosis [...] Comments Blood Pressure 137/86 07/07/2024 3:33 PM DIE CUTTER Pulse 94 07/07/2024 3:33 PM DIE CUTTER Temperature 36.6 C (97.9 F) 07/07/2024 3:33 PM DIE CUTTER Respiratory Rate 16 07/07/2024 3:33 PM DIE CUTTER Oxygen Saturation 97% 07/07/2024 3:33 PM DIE CUTTER Inhaled Oxygen Concentration - - Weight 120.1 kg (264 lb 12.8 oz) 07/07/2024 3:33 PM DIE CUTTER Height 188 cm (6' 2 ) 10/31/2023 2:24 PM CDT Body Mass Index 34 10/31/2023 2:24 PM CDT Plan of Treatment Upcoming Encounters Date Type Department Care Team (Late st Contact Info) Description 11/04/2024 3:45 PM CDT Office Visit [facility] Oncology and Hematology - Tab [address] [facility] [address] [place] [address] Gibran Wilson MD [address] [facility] [address] [place] [address] Health Maintenance Due Date Last [...] complete this topic Insurance [facility] PREFERRED [facility] BLUE PREFERRED Advance Directives For more information, please contact: [phone] * Full Code (Latest Code Status on File) Date Activated Date Inactivated Comments 10/02/2023 4:24 AM 10/03/2023 4:05 PM
--- OUTSIDE RECORDS SUMMARY | 2024-10-03 09:05 | XMS_ITS | Encounter Summary ---
Author Organization [facility] Address [address] [place] [address] Care Team Providers Care Integration Software Developer Name Role Phone Jose Mccloud MD Primary Care Provider [phone] Encounter Details Date Type Department Care Team (Late st Contact Info) Description 08/21/2019 Telephone [facility] ANESTHESIA [address] [place] [id number] Shawn Sanchez, DO [address] [facility] [address] [place] [address] Social History Tobacco Use Types [...] or concerns. Shawn Sanchez DO 08/21/19 T documented in this encounter Plan of Treatment Not on file documented as of this encounter Visit Diagnoses Not on filedocumented in this encounter Care Teams Integration Software Developer Relationship Specialty Start Date End Date Jose Mccloud MD PCP - General 02/03/19 documented as of this encounter
--- OUTSIDE RECORDS SUMMARY | 2024-10-03 09:05 | XMS_ITS | Encounter Summary ---
Author Organization [facility] Address [facility] [place] [address] Care Team Providers Care Callisthenics Instructor Name Role Phone Jose Mccloud MD Primary Care Provider [phone] Anisha Yung [facility] Primary Care Provider Unav ailable Jeni Khan MD Unavailable [phone] Cheryl Lee MD Primary Care Provider [phone] Encounter Details Date Type Department Care Team (Late st Contact Info) Description 12/12/2018 Hosp Visit [facility] Outpatient Therapy [place], [place] [id number] Homa Mendieta S, PT [place], [place] [id number] Social History Tobacco Use Types Packs/Day Years [...] thigh documented in this encounter Care Teams Callisthenics Instructor Relationship Specialty Start Date End Date Jose Mccloud MD PCP - General FAMILY PRACTICE 10/01/18 04/26/20 [facility] PCP - General NURSE PRACTITIONER 04/27/20 02/23/24 Cheryl Lee MD [address] [place] [address] PCP - General FAMILY PRACTICE 02/24/24 Jeni Khan MD ORTHOPAEDIC SURGERY 04/27/20 documented as of this encounter
--- OUTSIDE RECORDS SUMMARY | 2024-10-03 09:05 | XMS_ITS | Referral Summary ---
Author Organization [facility] Building [facility] Address [address] [place] [address] Care Team Providers Care Linseed Oil Press Tender Name Role Phone Jose Mccloud MD Primary Care Provider [phone] Arpan Iyer MD Unavailable [phone] Encounters Date Type Department Care Team Description 08/05/2024 Telephone [facility] Medical [facility] Orthopedics and Sports Medicine [address] [place] [address], [place] [address] Lavonne Iqbal NP 08/05/2024 Documentation [facility] Orthopedics and Sports Medicine [address] [facility] [address], [place] [address] Anna Nelson MA 08/05/2024 7:47 AM MAINTENANCE CLERK - 08/05/2024 11:59 PM MAINTENANCE CLERK Hospital Encounter [facility] Orthopedics and Sports Medicine [address] [place] [address] [address] [place] [address] Discharge Disposition: Discharge to home or self care 08/05/2024 1:00 PM MAINTENANCE CLERK Office Visit [facility] Orthopedics and Sports Medicine [address] [place] [address] [address] [place] [address] Lavonne Iqbal NP 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 (Primary Dx) 07/29/2024 Telephone [facility] Medical [facility] Vascular and Vein Surgery [address] [facility] [address] [place] [address] Jael Vázquez 07/17/2024 Orders Only [facility] Orthopedics and Sports Medicine [address] [place] [address] [address] [place] [address] Lavonne Iqbal NP 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 (Primary Dx) 07/16/2024 Telephone [facility] Orthopedics and Sports Medicine [address] [place] [address] [address] [place] [address] Arpan Iyer MD from Last 3 Months Allergies Active Allergy [...] on file Legal Sex Male 9:18 AM MAINTENANCE CLERK Gender Identity Not on file Sexual Orientation Not on file Last Filed Vital Signs Vital Sign Reading Time Taken Comments Blood Pressure 132/82 08/05/2024 1:04 PM MAINTENANCE CLERK Pulse 93 08/05/2024 1:04 PM MAINTENANCE CLERK Temperature 36.7 C (98.1 F) 06/11/2024 2:28 PM MAINTENANCE CLERK Respiratory Rate 18 06/11/2024 2:28 PM MAINTENANCE CLERK Oxygen Saturation 100% 06/11/2024 2:28 PM MAINTENANCE CLERK Inhaled Oxygen Concentration - - Weight 118.4 kg (261 lb) 08/05/2024 1:04 PM MAINTENANCE CLERK Height 188 cm (6' 2 ) 08/05/2024 1:04 PM MAINTENANCE CLERK Body Mass Index 33.51 08/05/2024 1:04 PM MAINTENANCE CLERK Plan of Treatment Not on file Medical Devices Implanted Type Area Child Care Giver Device Identifier Shelf Expiration Date Model / Serial / Lot [employer] Bucklin 58mm 36mm Hip Neutral Liner Acetabular Altrx Sterile Latex Free [id number] - [id number] Implanted:Qty: 1 on 06/11/2024 by Arpan Iyer MD at [facility] Left: Hip [employer] [id number] 02/22/2029 [id number] / / [id number] [employer] Bucklin 58mm Sector Hip Shell Acetabular Gription Sterile Latex Free [id number] - [id number] Implanted:Qty: 1 on 06/11/2024 by Arpan Iyer MD at [facility] Left: Hip [employer] [id number] 03/24/2034 [id number] / / [id number] [employer] Bucklin 6.5mm 35mm Acetabular Cancellous Screw Bone Sterile 1217-35-500 - [id number] Implanted:Qty: 1 on 06/11/2024 by Arpan Iyer MD at [facility] Left: Hip [employer] [id number] 06/24/2033 1217-35-500 / / [id number] [employer] Bucklin 6.5mm 35mm Acetabular Cancellous Screw Bone Sterile 1217-35-500 - [id number] Implanted:Qty: 1 on 06/11/2024 by Arpan Iyer MD at [facility] Left: Hip [employer] [id number] 01/22/2034 1217-35-500 / / [id number] [employer] Actis L107 Mm Collar Hip 6 High Offset Stem Femoral [id number] - [id number] Implanted:Qty: 1 on 06/11/2024 by Arpan Iyer MD at [facility] Left: Hip [employer] [id number] 09/22/2033 [id number] / / [id number] [employer] Articul/Alhaji 36mm Cementless Hip +8.5mm 12/14 Taper Head Femoral Latex Free 1365-36-330 - [id number] Implanted:Qty: 1 on 06/11/2024 by Arpan Iyer MD at [facility] Left: Hip [employer] [id number] 01/22/2029 1365-36-330 / / [id number] Procedures Procedure Name Priority Date/Time Associated Diagnosis Comments XR HIP LEFT 2 OR 3 VIEWS Schedule Routine, Read Routine (OP Routine) 08/05/2024 1:00 PM MAINTENANCE CLERK 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 from Last 3 Months Results * XR Hip Left 2 or 3 Views (08/05/2024 1:00 PM MAINTENANCE CLERK) Anatomical Region Laterality Modality Lower Extremities, Hip, Pelvis Left D igital Radiography Narrative 08/05/2024 1:15 PM MAINTENANCE CLERK Radiographs taken of the left hip today reveal a total hip arthroplasty in appropriate position with no interval change from the time of surgery. Lavonne Iqbal HEALTH OUTCOMES LIAISON IMG XR PROCEDURES Final Result from Last 3 Months Insurance BLUE ACCESS OOS BLUE ACCESS OOS Care Teams Linseed Oil Press Tender Relationship Specialty Start Date End Date Jose Mccloud MD PCP - General Family Practice 02/12/24 Arpan Iyer MD [address] [place] [address] [place] [address] Surgeon Orthopedic Surgery 06/11/24
--- OUTSIDE RECORDS SUMMARY | 2024-10-03 09:05 | XMS_ITS | Clinical Summary ---
Author Organization [facility] Medical Office Building B Address [address] [place] [address] Care Team Providers Care Produce Department Supervisor Name Role Phone Jose Mccloud MD Primary Care Provider [phone] Arpan Iyer MD Unavailable [phone] Allergies Active Allergy Reactions Criticality Noted Date [...] Department Care Team Description 08/05/2024 1:00 PM RN DIABETES EDUCATOR Office Visit [facility] [address] [place] [address] [address] [place] [address] Lavonne Iqbal NP 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 (Primary Dx) 08/05/2024 7:47 AM RN DIABETES EDUCATOR - 08/05/2024 11:59 PM RN DIABETES EDUCATOR Hospital Encounter [facility] [address] [place] [address] [address] [place] [address] Discharge Disposition: Discharge to home or self care 08/05/2024 Telephone [facility] [address] [place] [address] [address] [place] [address] Lavonne Iqbal NP 08/05/2024 Documentation [facility] [address] [place] [address] [address] [place] [address] Anna Nelson MA 07/29/2024 Telephone [facility] [address] [facility] [address] [place] [address] Jael Vázquez 07/17/2024 Orders Only [facility] [address] [place] [address] [address] [place] [address] Lavonne Iqbal NP 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 (Primary Dx) 07/16/2024 Telephone [facility] [address] [place] [address] [address] [place] [address] Arpan Iyer MD from Last 3 Months Surgical History Surgery [...] on file Legal Sex Male 9:18 AM RN DIABETES EDUCATOR Gender Identity Not on file Sexual Orientation Not on file Obstetrics History Last Filed Vital Signs Vital Sign Reading Time Taken Comments Blood Pressure 132/82 08/05/2024 1:04 PM RN DIABETES EDUCATOR Pulse 93 08/05/2024 1:04 PM RN DIABETES EDUCATOR Temperature 36.7 C (98.1 F) 06/11/2024 2:28 PM RN DIABETES EDUCATOR Respiratory Rate 18 06/11/2024 2:28 PM RN DIABETES EDUCATOR Oxygen Saturation 100% 06/11/2024 2:28 PM RN DIABETES EDUCATOR Inhaled Oxygen Concentration - - Weight 118.4 kg (261 lb) 08/05/2024 1:04 PM RN DIABETES EDUCATOR Height 188 cm (6' 2 ) 08/05/2024 1:04 PM RN DIABETES EDUCATOR Body Mass Index 33.51 08/05/2024 1:04 PM RN DIABETES EDUCATOR Plan of Treatment Health Maintenance Due Date Last Done Comments Colon Cancer Screening-Colonoscopy 1977 Depression Screening 1977 Hepatitis C Screening 1977 DTaP/Tdap/Td Vaccine (1 - Tdap) 1988 Hepatitis B Screening 09/01/1995 Regular Well Visit/Exam 18-64 09/01/1995 Influenza Vaccine (Season Ended) 2025 Pneumococcal vaccine <65 Aged Out No longer eligible based on patient's age to complete this topic Medical Devices Implanted Type Area External Grinder Tender Device Identifier Shelf Expiration Date Model / Serial / Lot Depuy [employer] Inc Garber 58mm 36mm Hip Neutral Liner Acetabular Altrx Sterile Latex Free [id number] - [id number] Implanted:Qty: 1 on 06/11/2024 by Arpan Iyer MD at [facility] Left: Hip Depuy [employer]opaed[employer] Inc [id number] 02/22/2029 [id number] / / [id number] Depuy [employer] Garber 58mm Sector Hip Shell Acetabular Gription Sterile Latex Free [id number] - [id number] Implanted:Qty: 1 on 06/11/2024 by Arpan Iyer MD at [facility] Left: Hip [employer]uy [employer]opaed[employer] Inc [id number] 03/24/2034 [id number] / / [id number] Dep[employer] Garber 6.5mm 35mm Acetabular Cancellous Screw Bone Sterile 1217-35-500 - [id number] Implanted:Qty: 1 on 06/11/2024 by Arpan Iyer MD at [facility] Left: Hip Depuy [employer] Inc [id number] 06/24/2033 1217-35-500 / / [id number] Dep[employer] Garber 6.5mm 35mm Acetabular Cancellous Screw Bone Sterile 121735-500 - [id number] Implanted:Qty: 1 on 06/11/2024 by Arpan Iyer MD at [facility] Left: Hip Depuy Orthopaed[employer] Inc [id number] 01/22/2034 1217-35-500 / / [id number] Depuy [employer]ed[employer] Actis L107 Mm Collar Hip 6 High Offset Stem Femoral [id number] - [id number] Implanted:Qty: 1 on 06/11/2024 by Arpan Iyer MD at [facility] Left: Hip Depuy [employer]ed[employer] Inc [id number] 09/22/2033 [id number] / / [id number] Depuy [employer] Inc Articul/Alhaji 36mm Cementless Hip +8.5mm 06/07 Taper Head Femoral Latex Free 1364-91-622 - [id number] Implanted:Qty: 1 on 06/11/2024 by Arpan Iyer MD at [facility] Left: Hip [employer] Inc [id number] 01/22/2029 1361-20-819 / / [id number] Procedures Procedure Name Priority Date/Time Associated Diagnosis Comments XR HIP LEFT 2 OR 3 VIEWS Schedule Routine, Read Routine (OP Routine) 08/05/2024 1:00 PM RN DIABETES EDUCATOR 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 from Last 3 Months Results * XR Hip Left 2 or 3 Views (08/05/2024 1:00 PM RN DIABETES EDUCATOR) Anatomical Region Laterality Modality Lower Extremities, Hip, Pelvis Left D igital Radiography Narrative 08/05/2024 1:15 PM RN DIABETES EDUCATOR Radiographs taken of the left hip today reveal a total hip arthroplasty in appropriate position with no interval change from the time of surgery. Lavonne Iqbal NP IMG XR PROCEDURES Final Result from Last 3 Months Insurance Clink OOS Member Subscriber Plan / Payer ( fective 2022-Present) Name:Niko Arriaga Relation to Subscriber:Self Name:Niko Arriaga Payer ID:[id number] ([employer]) Type:[facility] Address: [facility] [id number] [place] [address] Clink OOS Member Subscriber Plan / Payer ( fective 2022-Present) Name:Niko Arriaga Relation to Subscriber:Self Name:Niko Arriaga Payer ID:[id number] ([employer]IC) Type:[facility] Address: [facility] [address] [place] [address] Care Teams Produce Department Supervisor Relationship Specialty Start Date End Date Jose Mccloud MD PCP - General Family Practice 02/12/24 Arpan Iyer MD [address] [facility] [address] [place] [address] Surgeon Orthopedic Surgery 06/11/24
== END 2024-10-03 08:52 | disposition home or self-care (01) ==
PROVIDERS: PCP Family Medicine; Visit Provider Family Medicine
DX: I82.411 Acute embolism and thrombosis of right femoral vein (principal); I82.431 Acute embolism and thrombosis of right popliteal vein; R60.0 Localized edema; T82.7XXA Infection and inflammatory reaction due to other cardiac and vascular devices, implants and grafts, initial encounter
CPT/HCPCS: 93971

== ENCOUNTER 2025-03-10 09:42 | Outpatient (CLI) | payer BC, SELFPAY ==
--- NOTE | ~2025-03-10 | US_ITS ---
EXAMINATION:US_VDOPREFBI_US INDICATION:Postthrombotic syndrome. TECHNIQUE: Multiple grayscale, color flow and Doppler images of the right and left lower extremity deep venous systems were obtained and reviewed. COMPARISON:Ultrasound dated 10/03/2024 FINDINGS: There is chronic deep venous thrombosis which is partially occlusive in the right femoral and popliteal veins. No evidence for deep venous thrombosis in the left lower extremity veins. There is venous reflux in the right lesser saphenous vein as well as the left greater saphenous vein. IMPRESSION: 1: Chronic partially occlusive deep venous thrombosis of the right femoral and popliteal veins. Reviewed, dictated and finalized at location O.
--- NOTE | ~2025-03-10 | CT_ITS ---
EXAMINATION: CT abdomen pelvis w con DATE: 03/10/2025 11:17 INDICATION: Postthrombotic syndrome. TECHNIQUE: Computed tomography (CT) of the abdomen and pelvis was performed with 100 mL Omnipaque 350 intravenous contrast. Automated exposure control and iterative reconstruction technique were employed. The dose-length product was 1481.12 mGy-cm. COMPARISON: None. FINDINGS: The visualized portions of the lung bases demonstrate mild atelectasis. No pleural effusion. The heart size is normal. No pericardial effusion. There is an 8 mm cyst in the liver. The gallbladder, spleen, pancreas, adrenal glands, and kidneys are normal. The prostate is mildly enlarged. There are bilateral inguinal hernias containing fat. There are no dilated loops of bowel. The appendix is normal. There are no pathologically enlarged lymph nodes. There is no free intraperitoneal fluid. The veins are unremarkable. 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 There is severe right hip osteoarthritis. There is severe lower lumbar spondylosis. IMPRESSION: 1. Bilateral inguinal hernias containing fat. Reviewed, dictated and finalized at location E.
[2025-03-10 11:10] LABS: Estimated Glomerular Filt Rate > 60
--- OUTSIDE RECORDS SUMMARY | 2025-03-10 11:10 | XMS_ITS | Clinical Summary ---
Author Organization [facility] Medical Office Building B Address [address] [place] [address] Care Team Providers Care Family Practice Physician Assistant Name Role Phone Jose Mccloud MD Primary Care Provider [phone] Arpan Iyer MD Unavailable [phone] Allergies Active Allergy Reactions Criticality Noted Date Comments Meloxicam Other (See comments) Low 03/31/2024 unknown Diazepam Nausea only Low 03/31/2024 dehydrated Hydrocodone-Acetaminophen Nausea only Low 4 Dehydrated Medications lisinopriL (PRINIVIL,ZESTR IL) 20 mg tablet Take 1 tablet (20 mg total) by mouth daily 4 Active hydroCHLOROthia zide (HYDRODIURIL) 25 mg tablet Take 1 tablet (25 mg total) by mouth daily 4 Active phentermine 15 mg capsule Take 1 capsule (15 mg total) by mouth every morning 4 Active celecoxib (CeleBREX) 200 mg capsuleIndicati ons:Postoperati ve Acute Pain Take 1 capsule (200 mg total) by mouth 2 (two) times a day 84 capsule 4 Active apixaban (ELIQUIS) 5 mg tablet Take 1 tablet (5 mg total) by mouth 2 (two) times a day 5 Active ALPRAZolam (XANAX) 0.25 mg tablet Take 1 tablet (0.25 mg total) by mouth 2 (two) times a day as needed 5 Active Mounjaro 5 mg/0.5 mL pen injector injection 5 Active Wegovy 1.7 mg/0.75 mL auto-injector Inject 1.7 mg under the skin once a week 4 02/20/20 25 Discontinu ed(Patient Reported) Active Problems Problem Noted Date Diagnosed Date Primary osteoarthritis of left hip 05/29/2024 Low testosterone in male 03/31/2024 Encounters Date Type Department Care Team Description 02/25/2025 Telephone [facility] Radiology [address] [place] [address] Kenia Maher RN 02/19/2025 3:30 PM CDT Office Visit [facility] Hematology [address] [place] [address] Ilene Han MD Acute deep vein thrombosis (DVT) of right lower extremity, unspecified vein (HCC) (Primary Dx); Post-thrombotic syndrome of right lower extremity 02/12/2025 Telephone [facility] Hematology [address] [place] [address] Josie Dubon from Last 3 Months Surgical History Surgery [...] on file Legal Sex Male 9:18 AM LEARNING SUPPORT ASSISTANT Gender Identity Not on file Sexual Orientation Not on file Obstetrics History Last Filed Vital Signs Vital Sign Reading Time Taken Comments Blood Pressure 130/80 02/19/2025 3:25 PM CDT Pulse 76 02/19/2025 3:21 PM CDT Temperature 36.6 C (97.9 F) 02/19/2025 3:21 PM CDT Respiratory Rate 16 02/19/2025 3:21 PM CDT Oxygen Saturation 99% 02/19/2025 3:21 PM CDT Inhaled Oxygen Concentration - - Weight 127 kg (280 lb) 02/19/2025 3:21 PM CDT Height 187 cm (6' 1.62) 02/19/2025 3:21 PM CDT Body Mass Index 36.32 02/19/2025 3:21 PM CDT Plan of Treatment Health Maintenance Due Date Last Done Comments Colon Cancer Screening-Colonoscopy 1977 Depression Screening 1977 Hepatitis C Screening 1977 DTaP/Tdap/Td Vaccine (1 - Tdap) 1988 Hepatitis B Screening 09/01/1995 Regular Well Visit/Exam 18-64 09/01/1995 Influenza Vaccine (#1) 2025 Pneumococcal vaccine <65 Aged Out No longer eligible based on patient's age to complete this topic Medical Devices Implanted Type Area Power Plant Operator Device Identifier Shelf Expiration Date Model / Serial / Lot Depuy Orthopaed[employer] Inc [place] 58mm 36mm Hip Neutral Liner Acetabular Altrx Sterile Latex Free [id number] - [id number] Implanted:Qty: 1 on 06/11/2024 by Arpan Iyer MD at [facility] Left: Hip [employer]uy Orthopaed[employer] Inc [id number] 02/22/2029 [id number] / / [id number] Depuy [employer] Inc [place] 58mm Sector Hip Shell Acetabular Gription Sterile Latex Free [id number] - [id number] Implanted:Qty: 1 on 06/11/2024 by Arpan Iyer MD at [facility] Left: Hip [employer]uy Orth[employer]ed[employer] Inc [id number] 03/24/2034 [id number] / / [id number] Depuy [employer] Inc [place] 6.5mm 35mm Acetabular Cancellous Screw Bone Sterile 1217-35-500 - [id number] Implanted:Qty: 1 on 06/11/2024 by Arpan Iyer MD at [facility] Left: Hip Depuy Orth[employer] Inc [id number] 06/24/2033 1217-35-500 / / [id number] Depuy [employer] Inc [place] 6.5mm 35mm Acetabular Cancellous Screw Bone Sterile 1217-35-500 - [id number] Implanted:Qty: 1 on 06/11/2024 by Arpan Iyer MD at [facility] Left: Hip Depuy Orthopaedics Inc [id number] 01/22/2034 1217-35-500 / / [id number] Depuy Orth[employer]ed[employer] Inc Actis L107 Mm Collar Hip 6 High Offset Stem Femoral [id number] - [id number] Implanted:Qty: 1 on 06/11/2024 by Arpan Iyer MD at [facility] Left: Hip Depuy Orthopaedics Inc [id number] 09/22/2033 [id number] / / [id number] Depuy Orth[employer]ed[employer] Inc Articul/Alhaji 36mm Cementless Hip +8.5mm 06/07 Taper Head Femoral Latex Free 1365-36-330 - [id number] Implanted:Qty: 1 on 06/11/2024 by Arpan Iyer MD at [facility] Left: Hip Depuy Orthopaed[employer] Inc [id number] 01/22/2029 1365-36-330 / / [id number] Insurance [employer] OOS BLUE ACCESS OOS [employer] ACCESS OOS Care Teams Family Practice Physician Assistant Relationship Specialty Start Date End Date Jose Mccloud MD PCP - General Family Practice 02/12/24 Arpan Iyer MD [address] [place] [address] [place] [address] Surgeon Orthopedic Surgery 06/11/24
--- OUTSIDE RECORDS SUMMARY | 2025-03-10 11:10 | XMS_ITS | Clinical Summary ---
Author Organization [facility] Address [address] [place] [address] Care Team Providers Care Meteorology Teacher Name Role Phone Jeni Khan MD Unavailable [phone] Cheryl Lee MD Primary Care Provider [phone] Allergies Active Allergy Reactions Criticality Noted Date [...] 1:59 PM CDT Height 188 cm (6' 2) 10/12/2022 1:59 PM CDT Body Mass Index 41.6 10/12/2022 1:59 PM CDT Plan of Treatment Health Maintenance Due Date Last Done Comments Colorectal Cancer Screening Colonoscopy (10 Years) 1977 Hepatitis C 09/01/1995 DTaP, Tdap and Td Vaccines ( 1 - Tdap) 1996 Hepatitis B Vaccines (1 of 3 - 19+ 3-dose series) 1996 Annual Physical 07/19/2022 07/19/2021, 04/27/2020 PHQ-2 (Physician [place]) 06/25/2024 COVID-19 Vaccine (1 - 2023-2 5 season) 2025 Meningococcal B Vaccine Aged Out No l onger eligible based on patient's age to complete this topic Meningococcal Vaccine Aged Out No judith mihir eligible based on patient's age to complete this topic Pneumococcal Vaccine: Pediatrics (0 to 5 Years) and At-Risk Patients (6 to 49 Years) Aged Out No longer eligible b ased on patient's age to complete this topic RSV Immunizations Under 20 Months Aged Out No longer eligible b ased on patient's age to complete this topic Insurance DAWN Care Teams Meteorology Teacher Relationship Specialty Start Date End Date Cheryl Lee MD [address] [place] [address] PCP - General FAMILY PRACTICE 02/24/24 Jeni Khan MD ORTHOPAEDIC SURGERY 04/27/20
--- OUTSIDE RECORDS SUMMARY | 2025-03-10 11:10 | XMS_ITS | Clinical Summary ---
Author Organization [facility] Address [address] [place] [address] Care Team Providers Care Taproom Attendant Name Role Phone Jose Mccloud MD Primary Care Provider [phone] Source Comments [facility],non-owned Affiliates and Associated Physician Practices is amultiple site organization consisting of ambulatory clinics and hospital sitesin [place], [place], [place] and [place]. This disclosure is being madepursuant to the Care Everywhere program and may not contain all information available regarding this patient. Last updated 18.[facility] Allergies Active Allergy Reactions Criticality Noted Date Comments Hydrocodone-Acetaminophen Nausea and/or Vomiting Medium 08/09/2016 Meloxicam Unknown 12/01/2016 Medications * Be aware that medications may not be up to date on this document. Alwaysverify current medications with the patient. lisinopril-hydr oCHLOROthiazide (PRINZIDE; ZESTORETIC) 20-25 MG tablet Take 1 tablet by mouth 9 Active Magnesium Oxide 250 MG Take 1 tablet by mouth Active traMADol (ULTRAM) 50 MG tablet Take 1-2 tablets by mouth every 4 hours as needed 25 tablet 0 Active Additional Information Patient not taking.Reported on 04/13/2020 amLODIPine (NORVASC) 2.5 MG tablet 0 Active clonazePAM (KLONOPIN) 0.5 MG tablet 0 Active Elastic Bandages & Supports (KNEE BRACE) MISC Left knee brace, donjoy, hinge with padding. Replace current brace. 9 Active hydroCHLOROthia zide (HYDRODIURIL) 25 MG tablet 9 Active naproxen (NAPROSYN) 500 MG tablet Take 1 tablet by mouth every 12 hours 7 Active [place]-3 Fatty Acids (FISH OIL) 1000 MG capsule Take 1,000 mg by mouth 2 times daily Active phentermine (IONAMINE) 15 MG capsule Take 15 mg by mouth once daily 9 Active rizatriptan (MAXALT) 10 MG tablet Take 10 mg by mouth every 24 hours as needed 9 Active traZODone (DESYREL) 50 MG tablet 0 Active naltrexone-buPR OPion ER (CONTRAVE) 8-90 MG tablet Take 1 tablet by mouth 2 times daily 0 Active busPIRone (BUSPAR) 7.5 MG tablet Take by mouth once daily 0 Active naltrexone-buPR OPion ER (CONTRAVE) 8-90 MG tablet Take by mouth 2 times daily 0 Active ergocalciferol (DRISDOL) 1.25 MG (87704 UT) capsule Take 50,000 Units by mouth every 7 days Active Probiotic Product (ACIDOPHILUS/GO AT MILK) CAPS Take 4 capsules by mouth [...] at Not on file Legal Sex Male 11:51 AM CDT Gender Identity Not on file Sexual [...] 2:03 PM CDT Height 188 cm (6' 2) 04/13/2020 1:21 PM CDT Body Mass Index [...] 3-dose series) 1996 SCREENING FOR DIABETES 09/16/2020 DEPRESSION SCREENING 06/25/2024 LIPID TESTING 01/12/2025 01/13/2020, 11/05/2018 COVID-19 VACCINE (2023-2 5 season) 2025 INFLUENZA VACCINE (#1) 2025 ZOSTER VACCINE (1 of 2) 09/01/2027 [...] this topic Medical Devices Implanted Type Area Training Lead Device Identifier Shelf Expiration Date Model / Serial / Lot Healix Advance Br [place] W/Permatape Implanted:Qty: 1 on 08/20/2019 by Brian Johsnon MD at [facility] Right: Shoulder 07/25/2020 [id number] / / [id number] [place] Sut Healix Adv 5.5mm Kntls Br Implanted:Qty: 1 on 08/20/2019 by Brian Johnson MD at [facility] Right: Shoulder [employer] 07/25/2021 [id number] / / [id number] Insurance [place]/[facility] BL[facility] [place] [facility] Address: [facility] [address] [place] [address] Care Teams Taproom Attendant Relationship Specialty Start Date End Date Jose Mccloud MD PCP - General 02/03/19
--- OUTSIDE RECORDS SUMMARY | 2025-03-10 11:10 | XMS_ITS | Encounter Summary ---
Author Organization [facility] Address [address] [place] [address] Care Team Providers Care Tax Associate Name Role Phone Jose Mccloud MD Primary Care Provider [phone] Encounter Details Date Type Department Care Team (Late st Contact Info) Description 08/21/2019 Telephone [facility] PHYS ANESTHESIA [address] [place] [address] Shawn Sanchez, DO [address] [facility] [address] [place] [address] Social History Tobacco Use Types [...] questions or concerns. Shawn Sanchez DO 08/21/19 ILL SUPERVISOR documented in this encounter Plan of Treatment Not on file documented as of this encounter Visit Diagnoses Not on filedocumented in this encounter Care Teams Tax Associate Relationship Specialty Start Date End Date Jose Mccloud MD PCP - General 02/03/19 documented as of this encounter
--- OUTSIDE RECORDS SUMMARY | 2025-03-10 11:10 | XMS_ITS | Clinical Summary ---
Author Organization [facility] Address [address] [place] [address] Phone Care Team Providers Care Certified Respiratory Therapist Name Role Phone Jose Mccloud MD Primary Care Provider [phone] Allergies No known active allergies Medications ALPRAZolam (XANAX) 0.25 MG Tablet Take 0.25 mg by mouth 2 times daily as needed for Other. 5 Active amLODIPine (NORVASC) 10 MG Tablet Take 10 mg by mouth daily. 3 Active Eliquis 5 MG Tablet Take 5 mg by mouth 2 times daily. Active hydroCHLOROthia zide 25 MG Tablet Take 25 mg by mouth daily. Active lisinopril (PRINIVIL, ZESTRIL) 20 MG Tablet Take 40 mg by mouth daily. Active Wegovy 2.4 MG/0.75ML Solution Auto-injector 2.4 mg by Subcutaneous route once a week. 5 Active Active Problems Problem Noted Date Diagnosed Date PE (pulmonary thromboembolism) 11/20/2024 Chronic deep vein thrombosis (DVT) of femoral vein of right lower extremity 11/13/2024 Chronic deep 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 11/13/2024 Low testosterone in male 03/31/2024 Benign essential HTN 01/26/2019 Family History Medical History Relation Name Comments Hypertension Mother Diabetes Sister 1 Diabetes Sister 2 Relation Name Status Comments Mother Alive Sister 1 Alive Sister 2 Alive Social History Tobacco Use Types Packs/Day Years Used Date Smoking Tobacco: Never Smokeless Tobacco: Never Tobacco Cessation:Counseling Given: Not Answered Alcohol Use Standard Drinks/Week Comments Yes 0 (1 standard drink = 0.6 oz pur e alcohol) Sex and Gender Information Value Date Recorded Sex Assigned at Not on file Legal Sex Male 11:43 AM CDT Gender Identity Not on file Sexual Orientation Not on file Last Filed Vital Signs Vital Sign Reading Time Taken Comments Blood Pressure 130/83 11/20/2024 1:43 PM CDT Pulse 81 11/20/2024 1:43 PM CDT Temperature 36.7 C (98 F) 11/20/2024 1:43 PM CDT Respiratory Rate 18 11/20/2024 1:43 PM CDT Oxygen Saturation 99% 11/20/2024 1:43 PM CDT Inhaled Oxygen Concentration - - Weight 130.3 kg (287 lb 3.2 oz) 11/20/2024 1:43 PM CDT Height 188 cm (6' 2) 11/20/2024 1:43 PM CDT Body Mass Index 36.87 11/20/2024 1:43 PM CDT Plan of Treatment Health Maintenance Due Date Last Done Comments Hepatitis C Virus (HCV) Screening 1977 TdaP Immunization 1977 Hepatitis B Immunization (1 of 3 - 19+ 3-dose series) 1996 Cologuard 2022 Colonoscopy 2022 Colorectal Cancer Screening 2022 Immunochemical Fecal Occult Blood 2022 Influenza Immunization (#1) 2025 SARS-COV-2 Immunization ( season) 2025 Respiratory Syncytial Virus (RSV) Immunization (Adult) (1 - 1-dose 75+ series) 2052 Human Papillomavirus (HPV) Immunization Aged Out No longer eligible b ased on patient's age to complete this topic Meningococcal Immunization (ACWY) Aged Out No longer eligible based on patient's age to complete this topic Pneumococcal Immunization Combined Aged Out No longer eligible based on patient's age to complete this topic Rotavirus Immunization Aged Out No lo nger eligible based on patient's age to complete this [place] [address] [place] [address] Care Teams Certified Respiratory Therapist Relationship Specialty Start Date End Date Jose Mccloud MD PCP - General Family Medicine 11/13/24
--- OUTSIDE RECORDS SUMMARY | 2025-03-10 11:10 | XMS_ITS | Encounter Summary ---
Author Organization [facility] Address [facility] [address] [place] [address] Care Team Providers Care Retread Technician Name Role Phone Jose Mccloud MD Primary Care Provider [phone] Anisha Yung [facility] Primary Care Provider Unav ailable Jeni Khan MD Unavailable [phone] Cheryl Lee MD Primary Care Provider [phone] Encounter Details Date Type Department Care Team (Late st Contact Info) Description 12/12/2018 Hosp Visit [facility] Outpatient Therapy [place], [place] [id number] Homa Mendieta S, PT [place], [place] [id number] Social History Tobacco Use Types Packs/Day Years [...] thigh documented in this encounter Care Teams Retread Technician Relationship Specialty Start Date End Date Jose Mccloud MD PCP - General FAMILY PRACTICE 10/01/18 04/26/20 An[facility]ung [facility] PCP - General NURSE PRACTITIONER 04/27/20 02/23/24 Cheryl Lee MD [address] [place] [address] PCP - General FAMILY PRACTICE 02/24/24 Jeni Khan MD ORTHOPAEDIC SURGERY 04/27/20 documented as of this encounter
--- OUTSIDE RECORDS SUMMARY | 2025-03-10 11:10 | XMS_ITS | Encounter Summary ---
Author Organization [facility] Address [address] [place] [address] Care Team Providers Care Aoc Director Intelligence Officer Name Role Phone Unavailable Primary Care Provider Unavailabl e Reason for Visit * Reason Onset Date Comments FRecurretn PE and DVT 10/02/2023 Spoke W/ Marita austin @ Dr [facility]re[facility] exchange environmental professional Encounter Details Date Type Department Care Team (Late st Contact Info) Description 10/02/2023 Telephone [facility] Admitting [address] [place] [address] [place] [address] [address] FRecurretn PE and DVT (Spoke W/ Janette @ Dr [facility]reiber's exchange environmental professional) Social History Tobacco Use Types Packs/Day Years [...]
--- OUTSIDE RECORDS SUMMARY | 2025-03-10 11:10 | XMS_ITS | Clinical Summary ---
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 Role Phone Unavailable Primary Care Provider [...] Encounters Date Type Department Care Team Description 02/24/2025 External Device Data [facility] ABSTRACTION Provider, Abstract 01/13/2025 External Device Data [facility] Provider, Abstract 01/07/2025 External Device Data [facility] Provider, Abstract 01/07/2025 External Device Data [facility] Provider, Abstract 01/01/2025 Refill [facility] On[facility]ology - [address] [place] [address] Gibran Wilson MD 12/10/2024 External Device Data [facility] ABSTRACTION Provider, Abstract from Last 3 Months Family History Medical [...] Comments Blood Pressure 137/86 07/07/2024 3:33 PM TRIPPER Pulse 94 07/07/2024 3:33 PM TRIPPER Temperature 36.6 C (97.9 F) 07/07/2024 3:33 PM TRIPPER Respiratory Rate 16 07/07/2024 3:33 PM TRIPPER Oxygen Saturation 97% 07/07/2024 3:33 PM TRIPPER Inhaled Oxygen Concentration - - Weight 120.1 kg (264 lb 12.8 oz) 07/07/2024 3:33 PM TRIPPER Height 188 cm (6' 2) 10/31/2023 2:24 PM CDT Body Mass Index 34 10/31/2023 2:24 PM CDT Plan of Treatment Health Maintenance Due Date Last Done Comments Pre-Diabetes and Diabetes Screening 1977 DTAP/TDAP/TD VACCINES (1 - Tdap) 1996 HEPATITIS B VACCINES (1 of 3 - 19+ 3-dose series) 02/1997 COLORECTAL SCREENING 2022 Colorectal Cancer Screening 2022 FIT-DNA Q 3 years 2022 FIT/FOBT Q 1 year 2022 Flex Sig/CT Colonography Q 5 years 2022 INFLUENZA VACCINE (#1) 2025 Insurance [facility] PREFERRED [facility] Advance Directives For more information, please contact: [phone] * Full Code (Latest Code Status on File) Date Activated Date Inactivated Comments 10/02/2023 4:24 AM 10/03/2023 4:05 PM
== END 2025-03-10 09:43 | disposition home or self-care (01) ==
PROVIDERS: PCP Family Medicine
DX: M79.89 Other specified soft tissue disorders (principal); I82.511 Chronic embolism and thrombosis of right femoral vein; I82.531 Chronic embolism and thrombosis of right popliteal vein
CPT/HCPCS: 74177; 93970; Q9967